=== PATIENT | male | born 1965 | race Two or more races ===

== ENCOUNTER 2020-03-20 21:52 | Inpatient (IN) | payer OTHER ==
[~2020-03-20] VITALS: Ht 170.2 cm; Wt 81.7 kg
[2020-03-20 23:45] LABS: Basophils # (auto) 0.1 10 ^3/uL (0-0.2); Eosinophils # (auto) 0 10 ^3/uL (0-0.8); Eosinophils % (auto) 0.1 % (0.0-7.0); Hemoglobin 17.4 g/dL (13.5-17.5); Red Cell Distribution Width 14.9 % (11.8-14.3)
[2020-03-20 23:47] LABS: Basophils % (auto) 0.4 % (0.0-2.0); Hematocrit 53.6 % (41.0-53.0); Lymphocytes # (auto) 0.8 10 ^3/uL (0.4-5.4); Lymphocytes % (auto) 3.8 % (10.0-50.0); Mean Corpuscular Hemoglobin 29.3 pg (28.0-32.0); Mean Corpuscular Hgb Conc. 32.4 g/dL (32.0-36.0); Mean Corpuscular Volume 90.3 fL (80.0-100.0); Monocytes % (auto) 5.1 % (0.0-12.0); Neutrophils # (auto) 18.5 10 ^3/uL (1.6-8.6); Neutrophils % (auto) 90.6 % (37.0-80.0); Nucleated Red Blood Cells % 0.1 %; Platelet Count (auto) 419 10^3/uL (140-450); Red Blood Cells 5.94 10^6/uL (4.5-5.90); White Blood Cell 20.4 10^3/uL (4.4-10.8)
[2020-03-21] VITALS (73 sets, daily range): BP systolic 98–140; BP diastolic 65–101
[2020-03-21 00:05] LABS: Albumin 2.8 g/dL (3.4-5.0); Anion Gap 14 (5-15); Calcium 9.5 mg/dL (8.5-10.1); Carbon Dioxide 19 mmol/L (21-32); Chloride 116 mmol/L (98-107); INR 1.12 (0.9-1.15); Sodium 149 mmol/L (136-145)
[2020-03-21 00:12] LABS: Lactic Acid w/Reflex 3.4 mmol/L (0.4-2.0)
[2020-03-21 00:13] LABS: Alanine Aminotransferase 56 U/L (16-61); Alkaline Phosphatase 126 U/L (45-117); Aspartate Aminotransferase 54 U/L (15-37); BUN/Creatinine Ratio 51.8; Bilirubin, Total 0.9 mg/dL (0.2-1.0); GFR African American 47 mL/min; GFR Non-African American 39 mL/min; Total Protein 9.8 g/dL (6.4-8.2)
[2020-03-21 00:18] LABS: Blood Urea Nitrogen 100 mg/dL (7-18); Glucose 807 mg/dL (74-106); Potassium 5.4 mmol/L (3.5-5.1)
[2020-03-21] MEDS ORDERED: InsuLIN REG 1unit/0.01ml Soln (100units/ml) IV ONE (00:30)
[2020-03-21] MEDS ORDERED: SODIUM CHLORIDE 0.9% 1,000 ML IV ONE (00:45)
[2020-03-21] MEDS ORDERED: levoFLOXacin 750MG 150 ML IV ONE (01:30)
[2020-03-21] MEDS ORDERED: InsuLIN R (HUMAN) 100 UNITS in SODIUM CHL 0.9% 99 ML IV SCH ×4 (02:04→05:39)
[2020-03-21] MEDS ORDERED: DOCUSATE SOD 100 MG CAP PO PRN (02:15)
[2020-03-21] MEDS ORDERED: MORPHINE SULF INJ 2 MG/ML SYRINGE 1ML IV PRN (02:15)
[2020-03-21] MEDS ORDERED: MAGNESIUM SULFATE 1GM/100ML 200 ML IV ONE (02:15)
[2020-03-21] MEDS ORDERED: ONDANSETRON HCL 4 MG/2 ML VIAL IV PRN (02:15)
[2020-03-21] MEDS ORDERED: INSULIN LANTUS (GLARGINE) 1 /0.01ml (100units/ml) SC ONE ×2 (02:15→12:00)
[2020-03-21] MEDS ORDERED: DEXTROSE (50%) 50ML SYRG IV PRN ×3 (02:15→20:15)
[2020-03-21] MEDS ORDERED: TEMAZEPAM 15 MG CAP PO PRN (02:15)
[2020-03-21] MEDS ORDERED: POTASSIUM CHL 20MEQ/100ML 200 ML IV PRN (02:15)
[2020-03-21] MEDS: ACCU-CHEK COMFORT CURVE STRIP VI SCH ×10 (03:00→23:40)
[2020-03-21] MEDS ORDERED: InsuLIN REG 1unit/0.01ml Soln (100units/ml) ONE ×2 (03:35→03:48)
[2020-03-21] MEDS: SODIUM CHLORIDE 0.9% 1,000 ML IV SCH ×2 (04:04→05:28)
[2020-03-21] MEDS ORDERED: SODIUM CHLORIDE 0.9% 1,000 ML IV SCH ×2 (06:04→08:04)
[2020-03-21 06:39] LABS: Urine Bacteria NONE SEEN /hpf (None Seen); Urine Blood 1+ /uL (Negative); Urine Hyaline Cast MOD /lpf (0 - 2); Urine Mucus FEW (None Seen); Urine WBC 2 /hpf (0 - 3)
[2020-03-21] MEDS: InsuLIN REG 1unit/0.01ml Soln (100units/ml) SC SCH ×4 (07:00→23:00)
[2020-03-21 07:29] LABS: Calcium 8.6 mg/dL (8.5-10.1)
[2020-03-21 07:30] LABS: Basophils # (auto) 0 10 ^3/uL (0-0.2); Basophils % (auto) 0.2 % (0.0-2.0); Eosinophils # (auto) 0 10 ^3/uL (0-0.8); Hemoglobin 16.4 g/dL (13.5-17.5); Lymphocytes # (auto) 0.7 10 ^3/uL (0.4-5.4); Lymphocytes % (auto) 3.7 % (10.0-50.0); Mean Corpuscular Hgb Conc. 32.9 g/dL (32.0-36.0); Mean Corpuscular Volume 88.1 fL (80.0-100.0); Monocytes # (auto) 0.6 10 ^3/uL (0-1.3); Monocytes % (auto) 3.2 % (0.0-12.0); Neutrophils # (auto) 17.9 10 ^3/uL (1.6-8.6); Neutrophils % (auto) 92.9 % (37.0-80.0); Nucleated Red Blood Cells % 0.1 %; Platelet Count (auto) 390 10^3/uL (140-450); Red Blood Cells 5.68 10^6/uL (4.5-5.90); Red Cell Distribution Width 14.6 % (11.8-14.3); White Blood Cell 19.3 10^3/uL (4.4-10.8)
[2020-03-21 07:37] LABS: BUN/Creatinine Ratio 56.4; Phosphorus 3.9 mg/dL (2.5-4.90)
[2020-03-21 07:41] LABS: Magnesium 4.5 mg/dL (1.6-2.6)
[2020-03-21] MEDS: ALBUTEROL SULF HFA 90MCG INH 200DOSE IN SCH ×3 (08:27→22:32)
[2020-03-21] MEDS: ASCORBIC ACID 1,000 MG TAB PO SCH (10:09)
[2020-03-21] MEDS: ZINC SULFATE 220mg CAP or TAB PO SCH (10:09)
[2020-03-21] MEDS: DOXYCYCLINE 100 MG TAB/CAP PO SCH ×2 (10:09→22:21)
[2020-03-21] MEDS: CHOLECALCIFEROL (VITD3) 1,000IU=25mCg TAB PO SCH (10:10)
[2020-03-21] MEDS: ENOXAPARIN SOD 40 MG/0.4 ML SYRINGE SC SCH (10:10)
[2020-03-21] MEDS ORDERED: FUROSEMIDE 40 MG/4 ML VIAL IV ONE (12:00)
[2020-03-21 14:07] LABS: BUN/Creatinine Ratio 61.9; Calcium 9.1 mg/dL (8.5-10.1); Potassium 4.1 mmol/L (3.5-5.1)
[2020-03-21] MEDS ORDERED: cefTRIAXone 1GM/50ML D5W 50 ML IV ONE (15:15)
[2020-03-21] MEDS: FREE WATER GT SCH ×3 (17:29→22:21)
[2020-03-22] VITALS (92 sets, daily range): BP systolic 104–137; BP diastolic 67–99
[2020-03-22] MEDS: FREE WATER GT SCH ×2 (02:19→05:56)
[2020-03-22] MEDS: InsuLIN REG 1unit/0.01ml Soln (100units/ml) SC SCH ×4 (04:21→18:15)
[2020-03-22] MEDS: ACCU-CHEK COMFORT CURVE STRIP VI SCH ×3 (04:21→18:30)
[2020-03-22 04:54] LABS: Basophils # (auto) 0.1 10 ^3/uL (0-0.2); Basophils % (auto) 0.3 % (0.0-2.0); Eosinophils # (auto) 0.1 10 ^3/uL (0-0.8); Eosinophils % (auto) 0.7 % (0.0-7.0); Hematocrit 48.8 % (41.0-53.0); Lymphocytes # (auto) 1.2 10 ^3/uL (0.4-5.4); Lymphocytes % (auto) 6.1 % (10.0-50.0); Mean Corpuscular Hemoglobin 28.9 pg (28.0-32.0); Mean Corpuscular Hgb Conc. 32.8 g/dL (32.0-36.0); Monocytes # (auto) 0.9 10 ^3/uL (0-1.3); Monocytes % (auto) 4.5 % (0.0-12.0); Neutrophils # (auto) 17.4 10 ^3/uL (1.6-8.6); Neutrophils % (auto) 88.4 % (37.0-80.0); Nucleated Red Blood Cells % 0.1 %; Platelet Count (auto) 329 10^3/uL (140-450); Red Blood Cells 5.54 10^6/uL (4.5-5.90); Red Cell Distribution Width 14.6 % (11.8-14.3); White Blood Cell 19.7 10^3/uL (4.4-10.8)
[2020-03-22 05:15] LABS: Potassium 4.2 mmol/L (3.5-5.1)
[2020-03-22 05:30] LABS: Albumin 2.5 g/dL (3.4-5.0); BUN/Creatinine Ratio 51.1; Bilirubin, Total 0.7 mg/dL (0.2-1.0); Total Protein 8.5 g/dL (6.4-8.2)
[2020-03-22] MEDS: ALBUTEROL SULF HFA 90MCG INH 200DOSE IN SCH ×3 (06:48→22:58)
[2020-03-22] MEDS ORDERED: INSULIN LANTUS (GLARGINE) 1 /0.01ml (100units/ml) SC SCH ×2 (10:00→22:00)
[2020-03-22] MEDS: cefTRIAXone 1GM/50ML D5W 50 ML IV SCH (10:00)
[2020-03-22] MEDS: DOXYCYCLINE 100 MG TAB/CAP PO SCH ×2 (10:30→22:36)
[2020-03-22] MEDS: CHOLECALCIFEROL (VITD3) 1,000IU=25mCg TAB PO SCH (10:30)
[2020-03-22] MEDS: ASCORBIC ACID 1,000 MG TAB PO SCH (10:30)
[2020-03-22] MEDS: ZINC SULFATE 220mg CAP or TAB PO SCH (10:30)
[2020-03-22] MEDS: FREE WATER PO SCH ×4 (10:30→22:00)
[2020-03-22] MEDS: ENOXAPARIN SOD 40 MG/0.4 ML SYRINGE SC SCH (10:30)
[2020-03-22] MEDS ORDERED: DEXTROSE (50%) 50ML SYRG IV PRN (12:15)
[2020-03-22] MEDS ORDERED: INSULIN LANTUS (GLARGINE) 1 /0.01ml (100units/ml) SC ONE (12:15)
[2020-03-22] MEDS: HYDROcodone-ACET 5/325MG TAB PO PRN (22:44)
[2020-03-22 22:52] LABS: Urine Bacteria NONE SEEN /hpf (None Seen); Urine Blood 1+ /uL (Negative); Urine Specific Gravity 1.028 (1.001-1.035); Urine WBC 1 /hpf (0 - 3)
[2020-03-22 23:04] LABS: Protein, Urine 45.4 mg/dL (0.0-11.9)
[2020-03-23] VITALS (37 sets, daily range): BP systolic 102–151; BP diastolic 64–89
[2020-03-23] MEDS: FREE WATER PO SCH ×2 (01:38→06:07)
[2020-03-23 04:59] LABS: Basophils # (auto) 0 10 ^3/uL (0-0.2); Basophils % (auto) 0.1 % (0.0-2.0); Eosinophils # (auto) 0.2 10 ^3/uL (0-0.8); Eosinophils % (auto) 1.7 % (0.0-7.0); Hematocrit 40.1 % (41.0-53.0); Hemoglobin 13.1 g/dL (13.5-17.5); Lymphocytes # (auto) 1.7 10 ^3/uL (0.4-5.4); Lymphocytes % (auto) 11.1 % (10.0-50.0); Mean Corpuscular Hemoglobin 28.7 pg (28.0-32.0); Mean Corpuscular Hgb Conc. 32.8 g/dL (32.0-36.0); Mean Corpuscular Volume 87.6 fL (80.0-100.0); Monocytes # (auto) 0.5 10 ^3/uL (0-1.3); Monocytes % (auto) 3.3 % (0.0-12.0); Neutrophils # (auto) 12.6 10 ^3/uL (1.6-8.6); Neutrophils % (auto) 83.8 % (37.0-80.0); Nucleated Red Blood Cells % 0.1 %; Platelet Count (auto) 238 10^3/uL (140-450); Red Blood Cells 4.58 10^6/uL (4.5-5.90); Red Cell Distribution Width 13.9 % (11.8-14.3); White Blood Cell 15.1 10^3/uL (4.4-10.8)
[2020-03-23 05:17] LABS: BUN/Creatinine Ratio 57.5; Potassium 3.6 mmol/L (3.5-5.1)
[2020-03-23] MEDS: ALBUTEROL SULF HFA 90MCG INH 200DOSE IN SCH ×3 (06:07→22:26)
[2020-03-23] MEDS: ACCU-CHEK COMFORT CURVE STRIP VI SCH ×5 (06:10→23:55)
[2020-03-23] MEDS: InsuLIN REG 1unit/0.01ml Soln (100units/ml) SC SCH ×5 (06:11→23:56)
[2020-03-23] MEDS: cefTRIAXone 1GM/50ML D5W 50 ML IV SCH (09:06)
[2020-03-23] MEDS: ZINC SULFATE 220mg CAP or TAB PO SCH (10:00)
[2020-03-23] MEDS: CHOLECALCIFEROL (VITD3) 1,000IU=25mCg TAB PO SCH (10:00)
[2020-03-23] MEDS: ASCORBIC ACID 1,000 MG TAB PO SCH (10:00)
[2020-03-23] MEDS: DOXYCYCLINE 100 MG TAB/CAP PO SCH ×2 (10:00→22:11)
[2020-03-23] MEDS: ENOXAPARIN SOD 40 MG/0.4 ML SYRINGE SC SCH (10:00)
[2020-03-23 10:48] LABS: Free T3 1.8 pg/mL (2.3-4.2); Free T4 (Free Thyroxine) 1.08 ng/dL (0.89-1.76)
[2020-03-23] MEDS ORDERED: NYSTATIN TOPICAL CREAM 15GM TOP ONE (12:30)
[2020-03-23] MEDS ORDERED: NYSTATIN (MOUTH-THROAT) 500,000 UNITS/5 ML SUSP MT ONE (12:30)
[2020-03-23] MEDS: NYSTATIN (MOUTH-THROAT) 500,000 UNITS/5 ML SUSP MT SCH ×2 (17:35→22:11)
[2020-03-23] MEDS: INSULIN LANTUS (GLARGINE) 1 /0.01ml (100units/ml) SC SCH (22:11)
[2020-03-23] MEDS: NYSTATIN TOPICAL CREAM 15GM TOP SCH (22:25)
[2020-03-23] MEDS: ACETAMINOPHEN 500 MG TAB PO PRN (22:28)
[2020-03-24 05:00] VITALS: BP 101/52
[2020-03-24] MEDS: InsuLIN REG 1unit/0.01ml Soln (100units/ml) SC SCH ×4 (06:00→23:25)
[2020-03-24] MEDS: ACCU-CHEK COMFORT CURVE STRIP VI SCH ×4 (06:04→21:53)
[2020-03-24] MEDS: NYSTATIN (MOUTH-THROAT) 500,000 UNITS/5 ML SUSP MT SCH ×4 (06:05→21:51)
[2020-03-24] MEDS: ALBUTEROL SULF HFA 90MCG INH 200DOSE IN SCH ×3 (06:39→22:26)
[2020-03-24 06:48] LABS: Basophils # (auto) 0.1 10 ^3/uL (0-0.2); Eosinophils # (auto) 0.1 10 ^3/uL (0-0.8); Eosinophils % (auto) 0.4 % (0.0-7.0); Hematocrit 39.3 % (41.0-53.0); Hemoglobin 13.4 g/dL (13.5-17.5); Lymphocytes # (auto) 1.4 10 ^3/uL (0.4-5.4); Lymphocytes % (auto) 10.1 % (10.0-50.0); Mean Corpuscular Volume 85.5 fL (80.0-100.0); Monocytes # (auto) 0.5 10 ^3/uL (0-1.3); Monocytes % (auto) 3.4 % (0.0-12.0); Neutrophils # (auto) 11.9 10 ^3/uL (1.6-8.6); Neutrophils % (auto) 85.1 % (37.0-80.0); Nucleated Red Blood Cells % 0.1 %; Platelet Count (auto) 220 10^3/uL (140-450); Red Cell Distribution Width 13.7 % (11.8-14.3)
[2020-03-24 07:08] LABS: Calcium 8.5 mg/dL (8.5-10.1); Potassium 3.4 mmol/L (3.5-5.1)
[2020-03-24 07:13] LABS: BUN/Creatinine Ratio 41.5
[2020-03-24 08:33] LABS: Cholesterol 75 mg/dL (< 200); HDL Cholesterol 21 mg/dL (40-59); LDL Cholesterol 47 mg/dL (< 100); Triglycerides 137 mg/dL (< 150)
[2020-03-24 09:00] VITALS: BP 118/68
[2020-03-24] MEDS: cefTRIAXone 1GM/50ML D5W 50 ML IV SCH (10:11)
[2020-03-24] MEDS: ASPirin 81 mg TAB PO SCH (10:11)
[2020-03-24] MEDS: ZINC SULFATE 220mg CAP or TAB PO SCH (10:11)
[2020-03-24] MEDS: ASCORBIC ACID 1,000 MG TAB PO SCH (10:11)
[2020-03-24] MEDS: DOXYCYCLINE 100 MG TAB/CAP PO SCH ×2 (10:11→21:52)
[2020-03-24] MEDS: CHOLECALCIFEROL (VITD3) 1,000IU=25mCg TAB PO SCH (10:12)
[2020-03-24] MEDS: INSULIN LANTUS (GLARGINE) 1 /0.01ml (100units/ml) SC SCH ×2 (10:12→21:55)
[2020-03-24] MEDS: NYSTATIN TOPICAL CREAM 15GM TOP SCH ×2 (10:13→21:52)
[2020-03-24] MEDS: ENOXAPARIN SOD 40 MG/0.4 ML SYRINGE SC SCH (10:13)
[2020-03-24 10:40] LABS: Magnesium 2.8 mg/dL (1.6-2.6)
[2020-03-24 10:59] VITALS: BP 118/68
[2020-03-24] MEDS ORDERED: POTASSIUM CHL 20 Meq TABLET PO ONE (11:30)
[2020-03-24 13:00] VITALS: BP 131/78
[2020-03-24 17:00] VITALS: BP 115/75
[2020-03-24] MEDS: ACETAMINOPHEN 500 MG TAB PO PRN (19:14)
[2020-03-24] MEDS: ATORVASTATIN 20 MG TAB PO SCH (21:52)
[2020-03-24 23:23] VITALS: BP 109/65
[2020-03-25] MEDS: NYSTATIN (MOUTH-THROAT) 500,000 UNITS/5 ML SUSP MT SCH ×4 (05:36→21:31)
[2020-03-25] MEDS: ALBUTEROL SULF HFA 90MCG INH 200DOSE IN SCH ×3 (05:50→21:56)
[2020-03-25] MEDS: ACCU-CHEK COMFORT CURVE STRIP VI SCH ×4 (05:50→21:56)
[2020-03-25] MEDS: InsuLIN REG 1unit/0.01ml Soln (100units/ml) SC SCH ×3 (05:50→17:00)
[2020-03-25] MEDS: INSULIN LANTUS (GLARGINE) 1 /0.01ml (100units/ml) SC SCH ×2 (05:51→21:48)
[2020-03-25 05:56] VITALS: BP 124/66
[2020-03-25] MEDS: ACETAMINOPHEN 500 MG TAB PO PRN ×3 (07:06→23:34)
[2020-03-25 07:51] LABS: Basophils # (auto) 0.1 10 ^3/uL (0-0.2); Basophils % (auto) 0.4 % (0.0-2.0); Eosinophils # (auto) 0.1 10 ^3/uL (0-0.8); Eosinophils % (auto) 0.4 % (0.0-7.0); Hematocrit 38.7 % (41.0-53.0); Hemoglobin 12.9 g/dL (13.5-17.5); Mean Corpuscular Hemoglobin 28.8 pg (28.0-32.0); Mean Corpuscular Hgb Conc. 33.2 g/dL (32.0-36.0); Mean Corpuscular Volume 86.9 fL (80.0-100.0); Monocytes # (auto) 0.5 10 ^3/uL (0-1.3); Monocytes % (auto) 3.6 % (0.0-12.0); Neutrophils # (auto) 12.7 10 ^3/uL (1.6-8.6); Neutrophils % (auto) 88.6 % (37.0-80.0); Nucleated Red Blood Cells % 0.1 %; Platelet Count (auto) 198 10^3/uL (140-450); Red Blood Cells 4.46 10^6/uL (4.5-5.90); Red Cell Distribution Width 13.8 % (11.8-14.3); White Blood Cell 14.3 10^3/uL (4.4-10.8)
[2020-03-25 08:03] LABS: Albumin 2.1 g/dL (3.4-5.0); Calcium 8.4 mg/dL (8.5-10.1); Potassium 3.9 mmol/L (3.5-5.1)
[2020-03-25 08:11] LABS: BUN/Creatinine Ratio 32.4; Bilirubin, Total 0.8 mg/dL (0.2-1.0); CRP High Sensitivity 7.34 mg/dL (< 0.3); Total Protein 7.4 g/dL (6.4-8.2)
[2020-03-25] MEDS: ASCORBIC ACID 1,000 MG TAB PO SCH (10:00)
[2020-03-25] MEDS: NYSTATIN TOPICAL CREAM 15GM TOP SCH ×2 (10:00→21:48)
[2020-03-25] MEDS: cefTRIAXone 1GM/50ML D5W 50 ML IV SCH (10:15)
[2020-03-25] MEDS: ASPirin 81 mg TAB PO SCH (10:15)
[2020-03-25] MEDS: CHOLECALCIFEROL (VITD3) 1,000IU=25mCg TAB PO SCH (10:15)
[2020-03-25] MEDS: ZINC SULFATE 220mg CAP or TAB PO SCH (10:16)
[2020-03-25] MEDS: DOXYCYCLINE 100 MG TAB/CAP PO SCH ×2 (10:16→21:31)
[2020-03-25] MEDS: ENOXAPARIN SOD 40 MG/0.4 ML SYRINGE SC SCH (10:16)
[2020-03-25 11:00] VITALS: BP 106/69
[2020-03-25 13:00] VITALS: BP 123/75
[2020-03-25] MEDS ORDERED: DEXTROSE (50%) 50ML SYRG IV PRN (15:15)
[2020-03-25] MEDS: FUROSEMIDE 40 MG/4 ML VIAL IV SCH (18:00)
[2020-03-25] MEDS: ATORVASTATIN 20 MG TAB PO SCH (21:31)
[2020-03-25] MEDS: POTASSIUM CHL 20 Meq TABLET PO SCH (21:31)
[2020-03-25 22:00] VITALS: BP 117/56
[2020-03-26 05:00] VITALS: BP 100/60
[2020-03-26] MEDS: NYSTATIN (MOUTH-THROAT) 500,000 UNITS/5 ML SUSP MT SCH ×4 (06:10→21:38)
[2020-03-26] MEDS: FUROSEMIDE 40 MG/4 ML VIAL IV SCH ×2 (06:10→17:24)
[2020-03-26] MEDS: INSULIN LANTUS (GLARGINE) 1 /0.01ml (100units/ml) SC SCH ×2 (06:20→22:34)
[2020-03-26] MEDS: ACCU-CHEK COMFORT CURVE STRIP VI SCH ×4 (06:20→22:33)
[2020-03-26] MEDS: InsuLIN REG 1unit/0.01ml Soln (100units/ml) SC SCH ×3 (06:21→17:00)
[2020-03-26] MEDS: ALBUTEROL SULF HFA 90MCG INH 200DOSE IN SCH ×3 (06:27→22:25)
[2020-03-26 07:19] LABS: Basophils # (auto) 0.1 10 ^3/uL (0-0.2); Basophils % (auto) 0.5 % (0.0-2.0); Eosinophils # (auto) 0.1 10 ^3/uL (0-0.8); Eosinophils % (auto) 0.5 % (0.0-7.0); Hematocrit 39.6 % (41.0-53.0); Hemoglobin 13.3 g/dL (13.5-17.5); Lymphocytes # (auto) 1.2 10 ^3/uL (0.4-5.4); Mean Corpuscular Hemoglobin 29.3 pg (28.0-32.0); Mean Corpuscular Hgb Conc. 33.4 g/dL (32.0-36.0); Mean Corpuscular Volume 87.7 fL (80.0-100.0); Monocytes # (auto) 0.6 10 ^3/uL (0-1.3); Monocytes % (auto) 3.6 % (0.0-12.0); Neutrophils # (auto) 13.6 10 ^3/uL (1.6-8.6); Neutrophils % (auto) 87.4 % (37.0-80.0); Nucleated Red Blood Cells % 0.2 %; Platelet Count (auto) 222 10^3/uL (140-450); Red Blood Cells 4.52 10^6/uL (4.5-5.90); Red Cell Distribution Width 13.8 % (11.8-14.3); White Blood Cell 15.6 10^3/uL (4.4-10.8)
[2020-03-26 07:34] LABS: Potassium 3.9 mmol/L (3.5-5.1)
[2020-03-26 07:41] LABS: BUN/Creatinine Ratio 34.2; Calcium 8.5 mg/dL (8.5-10.1)
[2020-03-26 09:00] VITALS: BP 135/87
[2020-03-26] MEDS: POTASSIUM CHL 20 Meq TABLET PO SCH ×2 (10:23→21:39)
[2020-03-26] MEDS: ASCORBIC ACID 1,000 MG TAB PO SCH (10:23)
[2020-03-26] MEDS: ASPirin 81 mg TAB PO SCH (10:23)
[2020-03-26] MEDS: cefTRIAXone 1GM/50ML D5W 50 ML IV SCH (10:23)
[2020-03-26] MEDS: ZINC SULFATE 220mg CAP or TAB PO SCH (10:24)
[2020-03-26] MEDS: NYSTATIN TOPICAL CREAM 15GM TOP SCH ×2 (10:25→22:22)
[2020-03-26] MEDS ORDERED: ENOXAPARIN SOD 40 MG/0.4 ML SYRINGE SC ONE (10:45)
[2020-03-26] MEDS: CHOLECALCIFEROL (VITD3) 1,000IU=25mCg TAB PO SCH (12:26)
[2020-03-26 13:00] VITALS: BP 118/75
[2020-03-26] MEDS ORDERED: ACETAMINOPHEN 650 mg PER 20 mL UD PO ONE (14:30)
[2020-03-26] MEDS ORDERED: methylPREDNISolone SOD SUCC 40 MG/ML VL IV ONE (14:30)
[2020-03-26] MEDS ORDERED: diphenhdrAMINE HCL 50 MG/1 ML VL IV ONE (14:30)
[2020-03-26] MEDS ORDERED: TOCILIZUMAB 400 MG in SODIUM CHL 0.9% 80 ML IV ONE (15:00)
[2020-03-26 17:00] VITALS: BP 113/76
[2020-03-26] MEDS: ATORVASTATIN 20 MG TAB PO SCH (21:39)
[2020-03-26] MEDS: ENOXAPARIN SOD 80 MG/0.8ML SYRINGE SC SCH (21:39)
[2020-03-26 22:19] VITALS: BP 92/54
[2020-03-27] VITALS (8 sets, daily range): BP systolic 101–129; BP diastolic 71–87
[2020-03-27] MEDS: FUROSEMIDE 40 MG/4 ML VIAL IV SCH ×2 (05:37→17:41)
[2020-03-27] MEDS: NYSTATIN (MOUTH-THROAT) 500,000 UNITS/5 ML SUSP MT SCH ×4 (05:37→21:13)
[2020-03-27] MEDS: ACCU-CHEK COMFORT CURVE STRIP VI SCH ×4 (05:46→21:25)
[2020-03-27] MEDS: InsuLIN REG 1unit/0.01ml Soln (100units/ml) SC SCH ×3 (06:41→17:00)
[2020-03-27] MEDS: INSULIN LANTUS (GLARGINE) 1 /0.01ml (100units/ml) SC SCH ×2 (06:42→21:39)
[2020-03-27] MEDS: ALBUTEROL SULF HFA 90MCG INH 200DOSE IN SCH ×3 (07:35→22:00)
[2020-03-27] MEDS: cefTRIAXone 1GM/50ML D5W 50 ML IV SCH (09:27)
[2020-03-27] MEDS ORDERED: diphenhdrAMINE HCL 50 MG/1 ML VL IV ONE (10:30)
[2020-03-27] MEDS ORDERED: ACETAMINOPHEN 650 mg PER 20 mL UD PO ONE (10:30)
[2020-03-27] MEDS ORDERED: methylPREDNISolone SOD SUCC 40 MG/ML VL IV ONE (10:30)
[2020-03-27] MEDS: ASPirin 81 mg TAB PO SCH (10:47)
[2020-03-27] MEDS: ZINC SULFATE 220mg CAP or TAB PO SCH (10:47)
[2020-03-27] MEDS: CHOLECALCIFEROL (VITD3) 1,000IU=25mCg TAB PO SCH ×2 (10:48→17:16)
[2020-03-27] MEDS: ENOXAPARIN SOD 80 MG/0.8ML SYRINGE SC SCH ×2 (10:48→21:13)
[2020-03-27] MEDS: POTASSIUM CHL 20 Meq TABLET PO SCH ×2 (10:48→21:13)
[2020-03-27] MEDS: ASCORBIC ACID 1,000 MG TAB PO SCH (10:48)
[2020-03-27] MEDS: NYSTATIN TOPICAL CREAM 15GM TOP SCH ×2 (10:48→21:25)
[2020-03-27] MEDS ORDERED: TOCILIZUMAB 400 MG in SODIUM CHL 0.9% 80 ML IV ONE (11:00)
[2020-03-27] MEDS: ATORVASTATIN 20 MG TAB PO SCH (21:13)
[2020-03-27] MEDS: ACETAMINOPHEN 500 MG TAB PO PRN (23:59)
[2020-03-28] MEDS: HYDROcodone-ACET 5/325MG TAB PO PRN ×2 (04:09→12:06)
[2020-03-28 05:00] VITALS: BP 111/70
[2020-03-28] MEDS: FUROSEMIDE 40 MG/4 ML VIAL IV SCH ×2 (06:36→17:40)
[2020-03-28] MEDS: NYSTATIN (MOUTH-THROAT) 500,000 UNITS/5 ML SUSP MT SCH ×4 (06:36→21:38)
[2020-03-28] MEDS: ACCU-CHEK COMFORT CURVE STRIP VI SCH ×4 (06:36→21:40)
[2020-03-28] MEDS: INSULIN LANTUS (GLARGINE) 1 /0.01ml (100units/ml) SC SCH ×2 (06:37→21:40)
[2020-03-28] MEDS: InsuLIN REG 1unit/0.01ml Soln (100units/ml) SC SCH ×3 (06:37→17:29)
[2020-03-28] MEDS: ALBUTEROL SULF HFA 90MCG INH 200DOSE IN SCH ×3 (08:00→22:11)
[2020-03-28 09:00] VITALS: BP 127/84
[2020-03-28] MEDS: cefTRIAXone 1GM/50ML D5W 50 ML IV SCH (09:56)
[2020-03-28] MEDS: ASPirin 81 mg TAB PO SCH (09:57)
[2020-03-28] MEDS: ASCORBIC ACID 1,000 MG TAB PO SCH (09:57)
[2020-03-28] MEDS: POTASSIUM CHL 20 Meq TABLET PO SCH ×2 (09:57→21:38)
[2020-03-28] MEDS: ZINC SULFATE 220mg CAP or TAB PO SCH (09:57)
[2020-03-28] MEDS: ENOXAPARIN SOD 80 MG/0.8ML SYRINGE SC SCH ×2 (09:58→21:38)
[2020-03-28] MEDS: CHOLECALCIFEROL (VITD3) 1,000IU=25mCg TAB PO SCH (09:58)
[2020-03-28] MEDS: NYSTATIN TOPICAL CREAM 15GM TOP SCH ×2 (09:58→21:39)
[2020-03-28] MEDS: LORazepam 0.5 MG TAB PO PRN ×2 (12:18→21:38)
[2020-03-28 13:00] VITALS: BP 123/87
[2020-03-28 17:28] VITALS: BP 140/69
[2020-03-28] MEDS: ATORVASTATIN 20 MG TAB PO SCH (21:38)
[2020-03-28 22:00] VITALS: BP 120/83
[2020-03-29 05:28] VITALS: BP 113/79
[2020-03-29 05:34] LABS: Basophils # (auto) 0.1 10 ^3/uL (0-0.2); Eosinophils # (auto) 0.1 10 ^3/uL (0-0.8); Eosinophils % (auto) 1.5 % (0.0-7.0); Hematocrit 40.9 % (41.0-53.0); Hemoglobin 13.7 g/dL (13.5-17.5); Lymphocytes # (auto) 2.2 10 ^3/uL (0.4-5.4); Lymphocytes % (auto) 26.3 % (10.0-50.0); Mean Corpuscular Hemoglobin 28.9 pg (28.0-32.0); Mean Corpuscular Hgb Conc. 33.5 g/dL (32.0-36.0); Mean Corpuscular Volume 86.3 fL (80.0-100.0); Monocytes # (auto) 0.6 10 ^3/uL (0-1.3); Monocytes % (auto) 6.9 % (0.0-12.0); Neutrophils # (auto) 5.4 10 ^3/uL (1.6-8.6); Neutrophils % (auto) 64.3 % (37.0-80.0); Nucleated Red Blood Cells % 0.1 %; Platelet Count (auto) 420 10^3/uL (140-450); Red Blood Cells 4.74 10^6/uL (4.5-5.90); Red Cell Distribution Width 13.7 % (11.8-14.3); White Blood Cell 8.4 10^3/uL (4.4-10.8)
[2020-03-29] MEDS: FUROSEMIDE 40 MG/4 ML VIAL IV SCH ×2 (05:50→17:32)
[2020-03-29 05:51] LABS: Calcium 8.7 mg/dL (8.5-10.1); Potassium 3.5 mmol/L (3.5-5.1)
[2020-03-29] MEDS: NYSTATIN (MOUTH-THROAT) 500,000 UNITS/5 ML SUSP MT SCH ×4 (05:51→21:16)
[2020-03-29 05:53] LABS: BUN/Creatinine Ratio 53.1
[2020-03-29] MEDS: ACCU-CHEK COMFORT CURVE STRIP VI SCH ×4 (05:59→21:16)
[2020-03-29] MEDS: InsuLIN REG 1unit/0.01ml Soln (100units/ml) SC SCH ×3 (05:59→17:34)
[2020-03-29] MEDS: INSULIN LANTUS (GLARGINE) 1 /0.01ml (100units/ml) SC SCH ×2 (06:35→21:15)
[2020-03-29] MEDS: ALBUTEROL SULF HFA 90MCG INH 200DOSE IN SCH ×4 (07:24→22:15)
[2020-03-29] MEDS: ASPirin 81 mg TAB PO SCH (08:51)
[2020-03-29] MEDS: cefTRIAXone 1GM/50ML D5W 50 ML IV SCH (08:51)
[2020-03-29] MEDS: ZINC SULFATE 220mg CAP or TAB PO SCH (08:52)
[2020-03-29] MEDS: POTASSIUM CHL 20 Meq TABLET PO SCH ×2 (08:53→21:02)
[2020-03-29] MEDS: ASCORBIC ACID 1,000 MG TAB PO SCH (08:54)
[2020-03-29] MEDS: CHOLECALCIFEROL (VITD3) 1,000IU=25mCg TAB PO SCH (08:54)
[2020-03-29] MEDS: ENOXAPARIN SOD 80 MG/0.8ML SYRINGE SC SCH ×2 (08:55→21:03)
[2020-03-29] MEDS: NYSTATIN TOPICAL CREAM 15GM TOP SCH ×2 (08:56→21:16)
[2020-03-29 09:00] VITALS: BP 113/82
[2020-03-29 13:00] VITALS: BP 92/64
[2020-03-29 17:16] VITALS: BP 106/79
[2020-03-29] MEDS: ATORVASTATIN 20 MG TAB PO SCH (21:03)
[2020-03-29 22:00] VITALS: BP 113/74
[2020-03-30 05:09] VITALS: BP 103/67
[2020-03-30] MEDS: ALBUTEROL SULF HFA 90MCG INH 200DOSE IN SCH ×2 (06:00→14:30)
[2020-03-30] MEDS: NYSTATIN (MOUTH-THROAT) 500,000 UNITS/5 ML SUSP MT SCH ×2 (06:00→08:55)
[2020-03-30] MEDS: FUROSEMIDE 40 MG/4 ML VIAL IV SCH (06:00)
[2020-03-30] MEDS: ACCU-CHEK COMFORT CURVE STRIP VI SCH (06:21)
[2020-03-30] MEDS: INSULIN LANTUS (GLARGINE) 1 /0.01ml (100units/ml) SC SCH (06:22)
[2020-03-30] MEDS: InsuLIN REG 1unit/0.01ml Soln (100units/ml) SC SCH (06:22)
[2020-03-30] MEDS: cefTRIAXone 1GM/50ML D5W 50 ML IV SCH (08:52)
[2020-03-30] MEDS: ASPirin 81 mg TAB PO SCH (08:52)
[2020-03-30] MEDS: POTASSIUM CHL 20 Meq TABLET PO SCH (08:53)
[2020-03-30] MEDS: ZINC SULFATE 220mg CAP or TAB PO SCH (08:53)
[2020-03-30] MEDS: ASCORBIC ACID 1,000 MG TAB PO SCH (08:53)
[2020-03-30] MEDS: CHOLECALCIFEROL (VITD3) 1,000IU=25mCg TAB PO SCH (08:54)
[2020-03-30] MEDS: NYSTATIN TOPICAL CREAM 15GM TOP SCH (08:54)
[2020-03-30] MEDS: ENOXAPARIN SOD 80 MG/0.8ML SYRINGE SC SCH (08:54)
[2020-03-30] MEDS: LORazepam 0.5 MG TAB PO PRN (08:56)
[2020-03-30] MEDS: HYDROcodone-ACET 5/325MG TAB PO PRN (08:56)
[2020-03-30] MEDS ORDERED: ATOR10TA52 PO (09:31)
[2020-03-30] MEDS ORDERED: ASCO10003 PO (09:31)
[2020-03-30] MEDS ORDERED: ASPI81CH43 PO (09:31)
[2020-03-30] MEDS ORDERED: CHOL20007 PO (09:32)
[2020-03-30] MEDS ORDERED: ALBUAER3 IN (09:32)
[2020-03-30] MEDS ORDERED: METF-370 PO (09:37)
[2020-03-30 12:29] VITALS: BP 103/67
== END 2020-03-30 17:20 | disposition home or self-care (01) | DRG 871 ==
LOC: EDBD 21:52 → ER 21:52 → TELE 21:53 → ICU WEST 03-21 04:00 → TELE-EAST 03-23 11:48
PROVIDERS: ADMIT Hospitalist; ATTEND Internal Medicine
PROC: 30233K1 Transfusion of Nonautologous Frozen Plasma into Peripheral Vein, Percutaneous Approach (ICD-10-PCS; principal; 2020-03-27)
DX: A41.89 Other specified sepsis (principal); U07.1 COVID-19; E11.00 Type 2 diabetes mellitus with hyperosmolarity without nonketotic hyperglycemic-hyperosmolar coma (NKHHC); J12.89 Other viral pneumonia; N17.0 Acute kidney failure with tubular necrosis; G93.41 Metabolic encephalopathy; J96.01 Acute respiratory failure with hypoxia; E43 Unspecified severe protein-calorie malnutrition; E87.0 Hyperosmolality and hypernatremia; E11.65 Type 2 diabetes mellitus with hyperglycemia; E86.0 Dehydration; E78.5 Hyperlipidemia, unspecified; Z79.4 Long term (current) use of insulin; Z83.3 Family history of diabetes mellitus; Z86.19 Personal history of other infectious and parasitic diseases
CPT/HCPCS: 36415; 36600; 71045; 80048; 80053; 80061; 81001; 82010; 82570; 82728; 82805; 82962; 83036; 83605; 83615; 83735; 83880; 83930; 84100; 84156; 84300; 84439; 84443; 84481; 84484; 85025; 85610; 85730; 86141; 86850; 86900; 86901; 87040; 87081; 93005; 94640; 96365; 96375; 97116; 97163; 97530; G0378; J0696; J1815; J1956

== ENCOUNTER → 2020-05-18 | Outpatient (CLI) | payer OTHER ==
[~2020-05-18] MED LIST: ALBUAER3 IN; ASCO10003 PO; ASPI81CH43 PO; ATOR10TA52 PO; CHOL20007 PO; METF-370 PO
[2020-05-18 15:20] LABS: Basophils # (auto) 0.1 10 ^3/uL (0-0.2); Basophils % (auto) 0.8 % (0.0-2.0); Eosinophils # (auto) 1.1 10 ^3/uL (0-0.8); Eosinophils % (auto) 10.4 % (0.0-7.0); Hematocrit 39.9 % (41.0-53.0); Hemoglobin 13.4 g/dL (13.5-17.5); Lymphocytes # (auto) 2.8 10 ^3/uL (0.4-5.4); Lymphocytes % (auto) 27.1 % (10.0-50.0); Mean Corpuscular Hemoglobin 29.3 pg (28.0-32.0); Mean Corpuscular Hgb Conc. 33.6 g/dL (32.0-36.0); Monocytes % (auto) 9.7 % (0.0-12.0); Neutrophils # (auto) 5.4 10 ^3/uL (1.6-8.6); Platelet Count (auto) 366 10^3/uL (140-450); Red Blood Cells 4.58 10^6/uL (4.5-5.90); White Blood Cell 10.4 10^3/uL (4.4-10.8)
[2020-05-18 15:37] LABS: Albumin 3.8 g/dL (3.4-5.0); BUN/Creatinine Ratio 31.4; Calcium 9.4 mg/dL (8.5-10.1); Potassium 3.7 mmol/L (3.5-5.1)
[2020-05-18 15:40] LABS: Bilirubin, Total 0.4 mg/dL (0.2-1.0); Total Protein 8.2 g/dL (6.4-8.2)
[2020-05-18 15:45] LABS: Free T4 (Free Thyroxine) 1.1 ng/dL (0.89-1.76)
== END | disposition home or self-care (01) ==
LOC: LAB 15:00
PROVIDERS: ATTEND Internal Medicine
DX: E11.9 Type 2 diabetes mellitus without complications (principal); U07.1 COVID-19; R53.81 Other malaise
CPT/HCPCS: 36415; 80053; 82550; 82607; 84439; 84443; 85025

== ENCOUNTER → 2020-07-16 | Outpatient (CLI) | payer OTHER ==
[~2020-07-16] MED LIST changes: +ALBUTEROL SULF 2.5 MG/0.5ML(0.5%) NEB SOLN ONE
== END | disposition home or self-care (01) ==
LOC: RT 08:48
PROVIDERS: ATTEND Internal Medicine
DX: J12.89 Other viral pneumonia (principal); U07.1 COVID-19
CPT/HCPCS: 94727; 94729

== ENCOUNTER → 2020-07-28 | Outpatient (CLI) | payer OTHER ==
[~2020-07-28] MED LIST changes: -ALBUTEROL SULF 2.5 MG/0.5ML(0.5%) NEB SOLN ONE
[2020-07-28 13:54] LABS: Basophils # (auto) 0.1 10 ^3/uL (0-0.2); Basophils % (auto) 0.8 % (0.0-2.0); Eosinophils # (auto) 0.1 10 ^3/uL (0-0.8); Eosinophils % (auto) 1.8 % (0.0-7.0); Hematocrit 43.1 % (41.0-53.0); Hemoglobin 14.6 g/dL (13.5-17.5); Lymphocytes # (auto) 2.2 10 ^3/uL (0.4-5.4); Lymphocytes % (auto) 28.5 % (10.0-50.0); Mean Corpuscular Hemoglobin 28.4 pg (28.0-32.0); Mean Corpuscular Hgb Conc. 33.8 g/dL (32.0-36.0); Monocytes # (auto) 0.7 10 ^3/uL (0-1.3); Monocytes % (auto) 8.7 % (0.0-12.0); Neutrophils # (auto) 4.7 10 ^3/uL (1.6-8.6); Neutrophils % (auto) 60.2 % (37.0-80.0); Platelet Count (auto) 311 10^3/uL (140-450); Red Blood Cells 5.13 10^6/uL (4.5-5.90); Red Cell Distribution Width 13.7 % (11.8-14.3); White Blood Cell 7.8 10^3/uL (4.4-10.8)
[2020-07-28 14:47] LABS: Free T4 (Free Thyroxine) 1.04 ng/dL (0.89-1.76)
[2020-07-28 14:48] LABS: Prostate Specific Antigen 1.49 ng/mL (0.0-4.0)
== END | disposition home or self-care (01) ==
LOC: LAB 13:16
PROVIDERS: ATTEND Internal Medicine
DX: Z12.5 Encounter for screening for malignant neoplasm of prostate (principal); E11.65 Type 2 diabetes mellitus with hyperglycemia; N39.0 Urinary tract infection, site not specified; R00.0 Tachycardia, unspecified
CPT/HCPCS: 36415; 80307; 82384; 83036; 84153; 84439; 84443; 85025

== ENCOUNTER → 2020-07-30 | Outpatient (CLI) | payer OTHER | END | disposition home or self-care (01) | LOC: LAB 10:30 | PROVIDERS: ATTEND Internal Medicine | DX: E11.9 Type 2 diabetes mellitus without complications (principal); E03.9 Hypothyroidism, unspecified; I50.23 Acute on chronic systolic (congestive) heart failure | CPT/HCPCS: 36415; 83036; 83880; 84443 ==

== ENCOUNTER → 2020-08-28 | Outpatient (CLI) | payer OTHER | END | disposition home or self-care (01) | LOC: LAB 16:12 | PROVIDERS: ATTEND Internal Medicine | DX: G93.3 Postviral and related fatigue syndromes (principal) | CPT/HCPCS: 36415; 85379 ==

== ENCOUNTER → 2020-10-01 | Outpatient (CLI) | payer OTHER ==
[~2020-10-01] VITALS: Ht 170.2 cm; Wt 87.5 kg
[~2020-10-01] MED LIST changes: +ADENOSINE 74 MG in GIVE UN-DILUTED 0 ML IV ONE; +ADENOSINE 90 MG/30 ML INJ IV ONE; +ASPI-231 PO; +GLIP2.5T28 PO; +GLIP5TAB12 PO; +INSREG3 SC; +LEVO-28 PO; +METR500T PO; +PANT40TA2 PO; +[UNRECOGNIZED DRUG - CODE] IV
== END | disposition home or self-care (01) ==
LOC: Rad HDHVI 08:42
PROVIDERS: ATTEND Internal Medicine
DX: R07.89 Other chest pain (principal); E11.9 Type 2 diabetes mellitus without complications; R06.02 Shortness of breath
CPT/HCPCS: 78452; 93005; 96374; 96375; A9500; J0153

== ENCOUNTER → 2020-10-08 | Outpatient (CLI) | payer OTHER ==
[~2020-10-08] MED LIST changes: -ADENOSINE 74 MG in GIVE UN-DILUTED 0 ML IV ONE; -ADENOSINE 90 MG/30 ML INJ IV ONE; -ASPI-231 PO; -GLIP2.5T28 PO; -GLIP5TAB12 PO; -INSREG3 SC; -LEVO-28 PO; -METR500T PO; -PANT40TA2 PO; -[UNRECOGNIZED DRUG - CODE] IV
== END | disposition home or self-care (01) ==
LOC: Rad HDHVI 08:18
PROVIDERS: ATTEND Internal Medicine Cardiovascular Disease
DX: I07.1 Rheumatic tricuspid insufficiency (principal); R00.2 Palpitations; R07.9 Chest pain, unspecified
CPT/HCPCS: 93306

== ENCOUNTER → 2020-12-18 | Outpatient (CLI) | payer OTHER ==
[2020-12-18 15:53] LABS: Basophils # (auto) 0.1 10 ^3/uL (0-0.2); Basophils % (auto) 1.1 % (0.0-2.0); Eosinophils # (auto) 0.2 10 ^3/uL (0-0.8); Eosinophils % (auto) 2.1 % (0.0-7.0); Hemoglobin 13.9 g/dL (13.5-17.5); Lymphocytes # (auto) 2.6 10 ^3/uL (0.4-5.4); Lymphocytes % (auto) 31.1 % (10.0-50.0); Mean Corpuscular Hemoglobin 29.1 pg (28.0-32.0); Mean Corpuscular Volume 85.7 fL (80.0-100.0); Monocytes # (auto) 0.7 10 ^3/uL (0-1.3); Monocytes % (auto) 7.9 % (0.0-12.0); Neutrophils # (auto) 4.8 10 ^3/uL (1.6-8.6); Neutrophils % (auto) 57.8 % (37.0-80.0); Nucleated Red Blood Cells % 0.3 %; Platelet Count (auto) 320 10^3/uL (140-450); Red Blood Cells 4.78 10^6/uL (4.5-5.90); White Blood Cell 8.3 10^3/uL (4.4-10.8)
[2020-12-18 16:02] LABS: Calcium 9.6 mg/dL (8.5-10.1); Potassium 3.9 mmol/L (3.5-5.1)
[2020-12-18 16:08] LABS: BUN/Creatinine Ratio 35.5; Bilirubin, Total 0.4 mg/dL (0.2-1.0); Total Protein 7.9 g/dL (6.4-8.2)
== END | disposition home or self-care (01) ==
LOC: LAB 14:53
PROVIDERS: ATTEND Internal Medicine
DX: E11.9 Type 2 diabetes mellitus without complications (principal); G62.9 Polyneuropathy, unspecified
CPT/HCPCS: 36415; 80053; 82607; 83036; 85025

== ENCOUNTER 2021-04-16 13:14 | Inpatient (IN) | payer OTHER ==
[~2021-04-16] VITALS: Ht 170.2 cm; Wt 95.1 kg
[2021-04-16] MEDS ORDERED: SODIUM CHLORIDE 0.9% 1,000 ML IVB ONE (13:30)
[2021-04-16] MEDS ORDERED: MORPHINE SULFATE 4 MG/ML SYR/VIAL IV ONE (13:30)
[2021-04-16] MEDS ORDERED: ONDANSETRON HCL 4 MG/2 ML VIAL IV ONE (13:30)
[2021-04-16] MEDS ORDERED: SODIUM CHLORIDE 0.9% 1,000 ML IV ONE (13:30)
[2021-04-16 14:54] LABS: Basophils # (auto) 0 10 ^3/uL (0-0.2); Basophils % (auto) 0.3 % (0.0-2.0); Eosinophils # (auto) 0 10 ^3/uL (0-0.8); Hematocrit 45.1 % (41.0-53.0); Hemoglobin 15.5 g/dL (13.5-17.5); Lymphocytes # (auto) 0.7 10 ^3/uL (0.4-5.4); Lymphocytes % (auto) 4.7 % (10.0-50.0); Mean Corpuscular Hemoglobin 29.1 pg (28.0-32.0); Mean Corpuscular Hgb Conc. 34.4 g/dL (32.0-36.0); Mean Corpuscular Volume 84.6 fL (80.0-100.0); Monocytes # (auto) 0.5 10 ^3/uL (0-1.3); Monocytes % (auto) 3.8 % (0.0-12.0); Neutrophils # (auto) 13.1 10 ^3/uL (1.6-8.6); Neutrophils % (auto) 91.2 % (37.0-80.0); Red Blood Cells 5.33 10^6/uL (4.5-5.90); White Blood Cell 14.3 10^3/uL (4.4-10.8)
[2021-04-16] MEDS ORDERED: metroNIDAZOLE 500MG/100ML 100 ML IV ONE ×2 (15:00→16:30)
[2021-04-16] MEDS ORDERED: cefTRIAXone 1GM/50ML D5W 50 ML IV ONE ×2 (15:00→18:00)
[2021-04-16 15:14] LABS: Alanine Aminotransferase 330 U/L (16-61); Albumin 4.1 g/dL (3.4-5.0); Anion Gap 10 (5-15); BUN/Creatinine Ratio 23.6; Blood Urea Nitrogen 17 mg/dL (7-18); Calcium 8.9 mg/dL (8.5-10.1); Carbon Dioxide 22 mmol/L (21-32); Chloride 102 mmol/L (98-107); GFR African American 146 mL/min; GFR Non-African American 121 mL/min; Glucose 266 mg/dL (74-106); Magnesium 2.2 mg/dL (1.6-2.6); Potassium 3.9 mmol/L (3.5-5.1); Sodium 134 mmol/L (136-145)
[2021-04-16 15:17] LABS: Alkaline Phosphatase 79 U/L (45-117); Aspartate Aminotransferase 450 U/L (15-37); Bilirubin, Total 2.2 mg/dL (0.2-1.0); Total Protein 8.2 g/dL (6.4-8.2)
[2021-04-16 15:20] LABS: Lactic Acid w/Reflex 2.9 mmol/L (0.4-2.0)
[2021-04-16] MEDS ORDERED: SUCRALFATE 1 GM/10 ML ORAL SUSP PO ONE (16:00)
[2021-04-16] MEDS ORDERED: DEXTROSE (50%) 50ML SYRG IV PRN (16:00)
[2021-04-16] MEDS ORDERED: PANTOPRAZOLE 40 MG/10 ML VIAL INJ IV ONE (16:00)
[2021-04-16] MEDS ORDERED: MORPHINE SULF INJ 2 MG/ML SYRINGE 1ML IV PRN ×2 (16:00→18:45)
[2021-04-16] MEDS ORDERED: NITROGLYCERIN 0.4 MG SL TAB SL PRN ×2 (16:00→18:45)
[2021-04-16 16:02] LABS: Lipase 15331 U/L (73-393)
[2021-04-16] MEDS ORDERED: GLIP5TAB12 PO (16:48)
[2021-04-16] MEDS: InsuLIN REG 1unit/0.01ml Soln (100units/ml) SC SCH ×2 (17:05→21:53)
[2021-04-16] MEDS: ACCU-CHEK COMFORT CURVE STRIP VI SCH ×2 (17:06→21:49)
[2021-04-16] MEDS ORDERED: ACETAMINOPHEN 325 MG TAB PO PRN (18:45)
[2021-04-16] MEDS ORDERED: ONDANSETRON HCL 4 MG/2 ML VIAL IV PRN (18:45)
[2021-04-16] MEDS ORDERED: LORazepam 0.5 MG TAB PO PRN (18:45)
[2021-04-16] MEDS ORDERED: DOCUSATE SOD 100 MG CAP PO PRN (18:45)
[2021-04-16] MEDS ORDERED: HYDROcodone-ACET 5/325MG TAB PO PRN (18:45)
[2021-04-16] MEDS ORDERED: ALUM & MAG HYDROX-SIMETH LIQ(MAALOX) 30 ML PO PRN (18:45)
[2021-04-16 18:46] LABS: Urine Bacteria NONE SEEN /hpf (None Seen); Urine Blood Negative /uL (Negative); Urine Specific Gravity 1.022 (1.001-1.035); Urine WBC <1 /hpf (0 - 3)
[2021-04-16 19:29] LABS: Alcohol, Urine < 3.0 mg/dL (0-10); Amphetamine Screen, Urine NEGATIVE (NEGATIVE); Barbiturate Scree,Urine NEGATIVE (NEGATIVE); Benzodiazephine Screen, Urine NEGATIVE (NEGATIVE); Cannabinoid Screen, Urine NEGATIVE (NEGATIVE); Cocaine Screen, Urine NEGATIVE (NEGATIVE); Opiate Scree,Urine POSITIVE (NEGATIVE); Phencyclidine Screen, Urine NEGATIVE (NEGATIVE)
[2021-04-16] MEDS: MORPHINE SULF INJ 2 MG/ML SYRINGE 1ML IV PRN (20:08)
[2021-04-16] MEDS: SODIUM CHLORIDE 0.9% 1,000 ML IV SCH (21:28)
[2021-04-16 21:43] LABS: Cholesterol 199 mg/dL (< 200); HDL Cholesterol 49 mg/dL (40-59); LDL Cholesterol 118 mg/dL (< 100); Triglycerides 159 mg/dL (< 150)
[2021-04-16] MEDS: SUCRALFATE 1 GM/10 ML ORAL SUSP PO SCH (21:49)
[2021-04-16 22:13] VITALS: BP 99/70
[2021-04-16] MEDS ORDERED: GLIP2.5T28 PO (22:32)
[2021-04-17] MEDS: MORPHINE SULF INJ 2 MG/ML SYRINGE 1ML IV PRN ×6 (01:00→23:58)
[2021-04-17 05:00] VITALS: BP 109/67
[2021-04-17 05:28] LABS: Basophils # (auto) 0 10 ^3/uL (0-0.2); Basophils % (auto) 0.1 % (0.0-2.0); Eosinophils # (auto) 0 10 ^3/uL (0-0.8); Hematocrit 40.3 % (41.0-53.0); Lymphocytes # (auto) 1.8 10 ^3/uL (0.4-5.4); Mean Corpuscular Hemoglobin 29.5 pg (28.0-32.0); Mean Corpuscular Hgb Conc. 34.7 g/dL (32.0-36.0); Mean Corpuscular Volume 85.2 fL (80.0-100.0); Monocytes # (auto) 1.1 10 ^3/uL (0-1.3); Monocytes % (auto) 6.9 % (0.0-12.0); Neutrophils # (auto) 13.2 10 ^3/uL (1.6-8.6); Nucleated Red Blood Cells % 0.1 %; Red Blood Cells 4.72 10^6/uL (4.5-5.90); Red Cell Distribution Width 14.2 % (11.8-14.3); White Blood Cell 16.2 10^3/uL (4.4-10.8)
[2021-04-17 05:41] LABS: Albumin 3.1 g/dL (3.4-5.0); Calcium 8.1 mg/dL (8.5-10.1); Chloride 106 mmol/L (98-107); Potassium 3.4 mmol/L (3.5-5.1); Sodium 138 mmol/L (136-145)
[2021-04-17 05:49] LABS: Alanine Aminotransferase 216 U/L (16-61); Alkaline Phosphatase 64 U/L (45-117); Anion Gap 8 (5-15); Aspartate Aminotransferase 141 U/L (15-37); BUN/Creatinine Ratio 29.3; Bilirubin, Total 1.2 mg/dL (0.2-1.0); Blood Urea Nitrogen 17 mg/dL (7-18); Carbon Dioxide 24 mmol/L (21-32); GFR African American 188 mL/min; GFR Non-African American 155 mL/min; Glucose 135 mg/dL (74-106); Lipase 6515 U/L (73-393); Magnesium 2.2 mg/dL (1.6-2.6); Phosphorus 3.2 mg/dL (2.5-4.90); Total Protein 7.3 g/dL (6.4-8.2)
[2021-04-17 05:50] LABS: INR 1.03 (0.9-1.15); Partial Thromboplastin Time 25.8 sec (23.0-31.2)
[2021-04-17] MEDS: ACCU-CHEK COMFORT CURVE STRIP VI SCH ×4 (06:05→21:46)
[2021-04-17] MEDS: metroNIDAZOLE 500MG/100ML 100 ML IV SCH ×3 (06:09→21:45)
[2021-04-17] MEDS: InsuLIN REG 1unit/0.01ml Soln (100units/ml) SC SCH ×4 (06:09→21:47)
[2021-04-17] MEDS: SUCRALFATE 1 GM/10 ML ORAL SUSP PO SCH ×4 (06:10→21:45)
[2021-04-17] MEDS: ASPirin 81 mg TAB PO SCH (08:32)
[2021-04-17] MEDS: PANTOPRAZOLE 40 MG/10 ML VIAL INJ IV SCH (08:32)
[2021-04-17 09:00] VITALS: BP 119/65
[2021-04-17] MEDS: SODIUM CHLORIDE 0.9% 1,000 ML IV SCH (11:36)
[2021-04-17] MEDS ORDERED: POTASSIUM CHLORIDE 20 MEQ, LIDOCAINE 1% (LOCAL ANESTH.) 2 ML in SODIUM CHL 0.9% 100 ML IV ONE (12:45)
[2021-04-17 13:00] VITALS: BP 123/79
[2021-04-17] MEDS ORDERED: VANCOMYCIN PER PHARMACY 0 MG IV SCH (13:00)
[2021-04-17] MEDS: VANCOMYCIN 1GM/250ML 250 ML IV SCH (16:15)
[2021-04-17 16:57] VITALS: BP 118/56
[2021-04-17] MEDS ORDERED: cefTRIAXone 1GM/50ML D5W 50 ML IV SCH (21:00)
[2021-04-17 22:00] VITALS: BP 126/72
[2021-04-18] MEDS: VANCOMYCIN 1GM/250ML 250 ML IV SCH ×3 (00:53→21:20)
[2021-04-18] MEDS: SODIUM CHLORIDE 0.9% 1,000 ML IV SCH ×2 (04:15→20:45)
[2021-04-18] MEDS: MORPHINE SULF INJ 2 MG/ML SYRINGE 1ML IV PRN ×5 (04:17→21:21)
[2021-04-18 05:00] VITALS: BP 148/84
[2021-04-18 05:42] LABS: Basophils # (auto) 0 10 ^3/uL (0-0.2); Basophils % (auto) 0.1 % (0.0-2.0); Eosinophils # (auto) 0 10 ^3/uL (0-0.8); Hemoglobin 13.1 g/dL (13.5-17.5); Lymphocytes # (auto) 1.2 10 ^3/uL (0.4-5.4); Lymphocytes % (auto) 6.1 % (10.0-50.0); Mean Corpuscular Hemoglobin 29.4 pg (28.0-32.0); Mean Corpuscular Hgb Conc. 34.4 g/dL (32.0-36.0); Mean Corpuscular Volume 85.6 fL (80.0-100.0); Monocytes # (auto) 1.4 10 ^3/uL (0-1.3); Monocytes % (auto) 6.7 % (0.0-12.0); Neutrophils # (auto) 17.7 10 ^3/uL (1.6-8.6); Neutrophils % (auto) 87.1 % (37.0-80.0); Red Blood Cells 4.44 10^6/uL (4.5-5.90); Red Cell Distribution Width 14.2 % (11.8-14.3); White Blood Cell 20.3 10^3/uL (4.4-10.8)
[2021-04-18 06:10] LABS: Potassium 3.2 mmol/L (3.5-5.1)
[2021-04-18 06:19] LABS: Albumin 2.9 g/dL (3.4-5.0); BUN/Creatinine Ratio 32.7; Calcium 7.7 mg/dL (8.5-10.1); Total Protein 7.3 g/dL (6.4-8.2)
[2021-04-18] MEDS: SUCRALFATE 1 GM/10 ML ORAL SUSP PO SCH ×4 (06:33→22:00)
[2021-04-18] MEDS: metroNIDAZOLE 500MG/100ML 100 ML IV SCH (06:33)
[2021-04-18] MEDS: ACCU-CHEK COMFORT CURVE STRIP VI SCH ×4 (06:34→21:40)
[2021-04-18] MEDS: InsuLIN REG 1unit/0.01ml Soln (100units/ml) SC SCH ×2 (06:34→11:17)
[2021-04-18] MEDS: ASPirin 81 mg TAB PO SCH (08:00)
[2021-04-18] MEDS: PANTOPRAZOLE 40 MG/10 ML VIAL INJ IV SCH (08:00)
[2021-04-18 09:00] VITALS: BP 131/74
[2021-04-18] MEDS ORDERED: POTASSIUM CHLORIDE 40 MEQ, LIDOCAINE 1% (LOCAL ANESTH.) 4 ML in SODIUM CHL 0.9% 250 ML IV ONE (11:15)
[2021-04-18 12:54] VITALS: BP 130/72
[2021-04-18] MEDS: PIPERACILLIN-TAZO 4.5GM 100 ML IV SCH ×2 (13:16→17:23)
[2021-04-18] MEDS ORDERED: TPN PER PHARMACY 0 ML IV SCH (14:15)
[2021-04-18] MEDS ORDERED: DEXTROSE (50%) 50ML SYRG IV PRN (14:30)
[2021-04-18 14:47] LABS: Pre Albumin 15.2 mg/dL (20.0-40.0)
[2021-04-18 15:01] LABS: Magnesium 2.3 mg/dL (1.6-2.6); Phosphorus 1.5 mg/dL (2.5-4.90)
[2021-04-18 16:43] VITALS: BP 143/89
[2021-04-18] MEDS ORDERED: SODIUM CHL 0.9% IV ONE (17:00)
[2021-04-18] MEDS ORDERED: SODIUM PHOSPHATES IV ONE (17:00)
[2021-04-18] MEDS ORDERED: InsuLIN REG 1unit/0.01ml Soln (100units/ml) SC SCH ×2 (17:00→22:00)
[2021-04-18] MEDS ORDERED: AMINO ACID INFUSION IN D10W 1,000 ML IV NR (20:00)
[2021-04-18 22:00] VITALS: BP 148/88
[2021-04-19] MEDS ORDERED: DEXTROSE (50%) 50ML SYRG IV SCH
[2021-04-19] MEDS: ACCU-CHEK COMFORT CURVE STRIP VI SCH ×5 (00:09→23:15)
[2021-04-19] MEDS: PIPERACILLIN-TAZO 4.5GM 100 ML IV SCH ×3 (00:09→11:32)
[2021-04-19] MEDS: InsuLIN REG 1unit/0.01ml Soln (100units/ml) SC SCH ×5 (00:11→23:17)
[2021-04-19] MEDS: MORPHINE SULF INJ 2 MG/ML SYRINGE 1ML IV PRN ×5 (01:11→23:02)
[2021-04-19 05:00] VITALS: BP 134/83
[2021-04-19 06:08] LABS: Basophils # (auto) 0.1 10 ^3/uL (0-0.2); Basophils % (auto) 0.3 % (0.0-2.0); Eosinophils # (auto) 0 10 ^3/uL (0-0.8); Eosinophils % (auto) 0.2 % (0.0-7.0); Hematocrit 33.9 % (41.0-53.0); Hemoglobin 11.9 g/dL (13.5-17.5); Lymphocytes # (auto) 1.4 10 ^3/uL (0.4-5.4); Lymphocytes % (auto) 6.7 % (10.0-50.0); Mean Corpuscular Hemoglobin 29.9 pg (28.0-32.0); Mean Corpuscular Hgb Conc. 35.1 g/dL (32.0-36.0); Mean Corpuscular Volume 85.2 fL (80.0-100.0); Monocytes # (auto) 1.4 10 ^3/uL (0-1.3); Monocytes % (auto) 6.7 % (0.0-12.0); Neutrophils % (auto) 86.1 % (37.0-80.0); Red Blood Cells 3.98 10^6/uL (4.5-5.90); Red Cell Distribution Width 14.1 % (11.8-14.3); White Blood Cell 20.9 10^3/uL (4.4-10.8)
[2021-04-19 06:33] LABS: Albumin 2.4 g/dL (3.4-5.0); Calcium 7.9 mg/dL (8.5-10.1); Magnesium 2.4 mg/dL (1.6-2.6); Potassium 3.2 mmol/L (3.5-5.1)
[2021-04-19 06:37] LABS: BUN/Creatinine Ratio 25.9
[2021-04-19] MEDS: SUCRALFATE 1 GM/10 ML ORAL SUSP PO SCH ×4 (06:46→21:32)
[2021-04-19] MEDS: VANCOMYCIN 1GM/250ML 250 ML IV SCH ×2 (06:46→18:14)
[2021-04-19 09:00] VITALS: BP 113/63
[2021-04-19] MEDS: PANTOPRAZOLE 40 MG/10 ML VIAL INJ IV SCH (09:28)
[2021-04-19] MEDS: ASPirin 81 mg TAB PO SCH (09:28)
[2021-04-19] MEDS ORDERED: POTASSIUM PHOSPHATE 44 MEQ in D5W 5% 250 ML IV ONE (10:30)
[2021-04-19 12:30] VITALS: BP 132/82
[2021-04-19] MEDS: SODIUM CHLORIDE 0.9% 1,000 ML IV SCH (12:59)
[2021-04-19 13:51] LABS: INR 1.09 (0.9-1.15); Partial Thromboplastin Time 31.9 sec (23.0-31.2)
[2021-04-19] MEDS: CEFEPIME 1 GM in SODIUM CHL 0.9% 50 ML IV SCH ×2 (14:29→21:31)
[2021-04-19] MEDS ORDERED: SODIUM CHLORIDE 0.9% 1,000 ML IV SCH (16:00)
[2021-04-19] MEDS ORDERED: ENOXAPARIN SOD 40 MG/0.4 ML SYRINGE SC ONE (16:00)
[2021-04-19 17:00] VITALS: BP 127/79
[2021-04-19] MEDS ORDERED: LIDOCAINE 1% (LOCAL ANESTH.) PF 5ml SDV ID ONE (18:15)
[2021-04-19] MEDS ORDERED: ADENOSINE 6 MG/2 ML INJ IV ONE (19:30)
[2021-04-19] MEDS ORDERED: PPN PER PHARMACY IV NR ×12 (20:00)
[2021-04-19 21:43] VITALS: BP 141/85
[2021-04-19] MEDS ORDERED: FUROSEMIDE 40 MG/4 ML VIAL IV ONE (21:45)
[2021-04-20] MEDS: VANCOMYCIN 1GM/250ML 250 ML IV SCH (03:12)
[2021-04-20] MEDS: MORPHINE SULF INJ 2 MG/ML SYRINGE 1ML IV PRN ×4 (03:20→23:41)
[2021-04-20 05:13] VITALS: BP 138/75
[2021-04-20] MEDS: ACCU-CHEK COMFORT CURVE STRIP VI SCH ×4 (06:11→23:41)
[2021-04-20] MEDS: CEFEPIME 1 GM in SODIUM CHL 0.9% 50 ML IV SCH ×3 (06:11→21:13)
[2021-04-20] MEDS: SUCRALFATE 1 GM/10 ML ORAL SUSP PO SCH ×4 (06:16→21:12)
[2021-04-20] MEDS: InsuLIN REG 1unit/0.01ml Soln (100units/ml) SC SCH ×4 (06:16→23:37)
[2021-04-20 07:41] LABS: Basophils # (auto) 0.1 10 ^3/uL (0-0.2); Basophils % (auto) 0.6 % (0.0-2.0); Eosinophils # (auto) 0.3 10 ^3/uL (0-0.8); Eosinophils % (auto) 1.7 % (0.0-7.0); Hematocrit 34.4 % (41.0-53.0); Hemoglobin 11.8 g/dL (13.5-17.5); Lymphocytes # (auto) 1.6 10 ^3/uL (0.4-5.4); Lymphocytes % (auto) 9.6 % (10.0-50.0); Mean Corpuscular Hemoglobin 29.2 pg (28.0-32.0); Mean Corpuscular Hgb Conc. 34.4 g/dL (32.0-36.0); Mean Corpuscular Volume 84.9 fL (80.0-100.0); Monocytes # (auto) 1.2 10 ^3/uL (0-1.3); Monocytes % (auto) 7.3 % (0.0-12.0); Neutrophils # (auto) 13.6 10 ^3/uL (1.6-8.6); Neutrophils % (auto) 80.8 % (37.0-80.0); Red Blood Cells 4.05 10^6/uL (4.5-5.90); White Blood Cell 16.8 10^3/uL (4.4-10.8)
[2021-04-20 08:02] LABS: Potassium 3.1 mmol/L (3.5-5.1)
[2021-04-20 08:10] LABS: Albumin 2.4 g/dL (3.4-5.0); BUN/Creatinine Ratio 25.4; Bilirubin, Total 0.7 mg/dL (0.2-1.0); Calcium 7.8 mg/dL (8.5-10.1); Magnesium 2.7 mg/dL (1.6-2.6); Phosphorus 1.8 mg/dL (2.5-4.90); Total Protein 7.2 g/dL (6.4-8.2)
[2021-04-20] MEDS: PANTOPRAZOLE 40 MG/10 ML VIAL INJ IV SCH (08:12)
[2021-04-20] MEDS: ENOXAPARIN SOD 40 MG/0.4 ML SYRINGE SC SCH (08:12)
[2021-04-20] MEDS: ASPirin 81 mg TAB PO SCH (08:12)
[2021-04-20 09:00] VITALS: BP 111/67
[2021-04-20] MEDS: metroNIDAZOLE 500MG/100ML 100 ML IV SCH ×2 (10:15→18:06)
[2021-04-20] MEDS ORDERED: POTASSIUM CHL 20MEQ/100ML 100 ML IV ONE (10:30)
[2021-04-20] MEDS ORDERED: FUROSEMIDE 40 MG/4 ML VIAL IV ONE (11:30)
[2021-04-20 12:30] VITALS: BP 120/74
[2021-04-20] MEDS ORDERED: POTASSIUM PHOSPHATE 44 MEQ in D5W 5% 250 ML IV ONE (12:30)
[2021-04-20] MEDS: LEVALBUTEROL HCL 1.25 MG/3 ML NEB NEB SCH ×3 (13:12→22:22)
[2021-04-20] MEDS: IPRATROPIUM BROM 0.5 MG/2.5ML INH SOL NEB SCH ×3 (13:13→22:22)
[2021-04-20 17:00] VITALS: BP 138/89
[2021-04-20] MEDS ORDERED: TPN PER PHARMACY IV NR ×10 (20:00)
[2021-04-20] MEDS ORDERED: PPN PER PHARMACY IV NR ×11 (20:00)
[2021-04-20 21:43] VITALS: BP 138/89
[2021-04-20 22:00] VITALS: BP 121/87
[2021-04-21] MEDS: metroNIDAZOLE 500MG/100ML 100 ML IV SCH ×3 (02:00→17:24)
[2021-04-21] MEDS: LEVALBUTEROL HCL 1.25 MG/3 ML NEB NEB SCH ×5 (02:21→21:51)
[2021-04-21] MEDS: IPRATROPIUM BROM 0.5 MG/2.5ML INH SOL NEB SCH ×5 (02:21→21:51)
[2021-04-21 05:29] VITALS: BP 135/86
[2021-04-21 06:04] LABS: Basophils # (auto) 0.1 10 ^3/uL (0-0.2); Basophils % (auto) 0.6 % (0.0-2.0); Eosinophils # (auto) 0.3 10 ^3/uL (0-0.8); Eosinophils % (auto) 2.2 % (0.0-7.0); Hematocrit 35.5 % (41.0-53.0); Hemoglobin 12.2 g/dL (13.5-17.5); Lymphocytes # (auto) 1.5 10 ^3/uL (0.4-5.4); Lymphocytes % (auto) 9.5 % (10.0-50.0); Mean Corpuscular Hemoglobin 29.1 pg (28.0-32.0); Mean Corpuscular Hgb Conc. 34.5 g/dL (32.0-36.0); Mean Corpuscular Volume 84.3 fL (80.0-100.0); Monocytes # (auto) 1.3 10 ^3/uL (0-1.3); Monocytes % (auto) 8.5 % (0.0-12.0); Neutrophils # (auto) 12.5 10 ^3/uL (1.6-8.6); Neutrophils % (auto) 79.2 % (37.0-80.0); Nucleated Red Blood Cells % 0.1 %; Red Blood Cells 4.21 10^6/uL (4.5-5.90); Red Cell Distribution Width 13.9 % (11.8-14.3); White Blood Cell 15.8 10^3/uL (4.4-10.8)
[2021-04-21] MEDS: ACCU-CHEK COMFORT CURVE STRIP VI SCH ×3 (06:08→17:23)
[2021-04-21] MEDS: CEFEPIME 1 GM in SODIUM CHL 0.9% 50 ML IV SCH ×3 (06:08→22:15)
[2021-04-21] MEDS: SUCRALFATE 1 GM/10 ML ORAL SUSP PO SCH ×4 (06:08→22:16)
[2021-04-21] MEDS: InsuLIN REG 1unit/0.01ml Soln (100units/ml) SC SCH ×3 (06:14→17:25)
[2021-04-21] MEDS: MORPHINE SULF INJ 2 MG/ML SYRINGE 1ML IV PRN ×3 (06:22→19:29)
[2021-04-21 06:32] LABS: Potassium 3.4 mmol/L (3.5-5.1)
[2021-04-21 06:41] LABS: Albumin 1.9 g/dL (3.4-5.0); BUN/Creatinine Ratio 24.6; Bilirubin, Total 0.5 mg/dL (0.2-1.0); Calcium 8.1 mg/dL (8.5-10.1); Magnesium 2.4 mg/dL (1.6-2.6); Phosphorus 2.7 mg/dL (2.5-4.90); Total Protein 7.3 g/dL (6.4-8.2)
[2021-04-21] MEDS ORDERED: POTASSIUM PHOSPHATE 22 MEQ in SODIUM CHL 0.9% 100 ML IV ONE (08:45)
[2021-04-21 09:00] VITALS: BP 114/71
[2021-04-21] MEDS: PANTOPRAZOLE 40 MG/10 ML VIAL INJ IV SCH (09:22)
[2021-04-21] MEDS: ASPirin 81 mg TAB PO SCH (09:22)
[2021-04-21] MEDS: ENOXAPARIN SOD 40 MG/0.4 ML SYRINGE SC SCH (09:23)
[2021-04-21 12:59] VITALS: BP 132/90
[2021-04-21 17:00] VITALS: BP 141/80
[2021-04-21] MEDS ORDERED: TPN PER PHARMACY IV NR ×11 (20:00)
[2021-04-21 22:00] VITALS: BP 143/93
[2021-04-22] MEDS: MORPHINE SULF INJ 2 MG/ML SYRINGE 1ML IV PRN (00:38)
[2021-04-22] MEDS: InsuLIN REG 1unit/0.01ml Soln (100units/ml) SC SCH ×3 (00:47→12:10)
[2021-04-22] MEDS: metroNIDAZOLE 500MG/100ML 100 ML IV SCH ×2 (01:22→10:15)
[2021-04-22] MEDS: LEVALBUTEROL HCL 1.25 MG/3 ML NEB NEB SCH ×4 (02:49→13:34)
[2021-04-22] MEDS: IPRATROPIUM BROM 0.5 MG/2.5ML INH SOL NEB SCH ×4 (02:49→13:34)
[2021-04-22 05:00] VITALS: BP 120/68
[2021-04-22] MEDS: CEFEPIME 1 GM in SODIUM CHL 0.9% 50 ML IV SCH ×2 (05:21→14:00)
[2021-04-22] MEDS: ACCU-CHEK COMFORT CURVE STRIP VI SCH ×3 (05:21→11:57)
[2021-04-22] MEDS: SUCRALFATE 1 GM/10 ML ORAL SUSP PO SCH ×2 (06:39→11:40)
[2021-04-22 06:47] LABS: Basophils # (auto) 0.1 10 ^3/uL (0-0.2); Basophils % (auto) 0.9 % (0.0-2.0); Eosinophils # (auto) 0.3 10 ^3/uL (0-0.8); Hematocrit 35.5 % (41.0-53.0); Hemoglobin 12.2 g/dL (13.5-17.5); Lymphocytes # (auto) 1.7 10 ^3/uL (0.4-5.4); Lymphocytes % (auto) 10.9 % (10.0-50.0); Mean Corpuscular Hgb Conc. 34.2 g/dL (32.0-36.0); Mean Corpuscular Volume 84.7 fL (80.0-100.0); Monocytes # (auto) 1.3 10 ^3/uL (0-1.3); Monocytes % (auto) 8.1 % (0.0-12.0); Neutrophils # (auto) 12.6 10 ^3/uL (1.6-8.6); Neutrophils % (auto) 78.1 % (37.0-80.0); Red Blood Cells 4.19 10^6/uL (4.5-5.90); Red Cell Distribution Width 14.1 % (11.8-14.3); White Blood Cell 16.1 10^3/uL (4.4-10.8)
[2021-04-22 07:05] LABS: Albumin 2.4 g/dL (3.4-5.0); Calcium 8.6 mg/dL (8.5-10.1); Magnesium 2.5 mg/dL (1.6-2.6); Potassium 3.8 mmol/L (3.5-5.1)
[2021-04-22 07:11] LABS: Bilirubin, Total 0.4 mg/dL (0.2-1.0); Phosphorus 2.8 mg/dL (2.5-4.90); Total Protein 7.4 g/dL (6.4-8.2)
[2021-04-22 09:00] VITALS: BP 131/78
[2021-04-22] MEDS: ENOXAPARIN SOD 40 MG/0.4 ML SYRINGE SC SCH (10:15)
[2021-04-22] MEDS: PANTOPRAZOLE 40 MG/10 ML VIAL INJ IV SCH (10:15)
[2021-04-22] MEDS: ASPirin 81 mg TAB PO SCH (10:15)
[2021-04-22 13:00] VITALS: BP 134/82
[2021-04-22] MEDS ORDERED: ASPI-231 PO (13:39)
[2021-04-22] MEDS ORDERED: LEVO-28 PO (13:39)
[2021-04-22] MEDS ORDERED: PANT40TA2 PO (13:39)
[2021-04-22] MEDS ORDERED: METR500T PO (13:39)
[2021-04-22] MEDS ORDERED: FUROSEMIDE 20 MG/2 ML VIAL IV ONE (14:30)
[2021-04-22] MEDS ORDERED: TPN PER PHARMACY IV NR ×10 (20:00)
== END 2021-04-22 16:16 | disposition home health service (06) | DRG 444 ==
LOC: ER 13:14 → TELE 15:48 → TELE-WESTW 19:27
PROVIDERS: ADMIT Hospitalist; ATTEND Internal Medicine
PROC: 02HV33Z Insertion of Infusion Device into Superior Vena Cava, Percutaneous Approach (ICD-10-PCS; principal; 2021-04-20)
DX: K80.01 Calculus of gallbladder with acute cholecystitis with obstruction (principal); K85.10 Biliary acute pancreatitis without necrosis or infection; N17.0 Acute kidney failure with tubular necrosis; R65.11 Systemic inflammatory response syndrome (SIRS) of non-infectious origin with acute organ dysfunction; J96.20 Acute and chronic respiratory failure, unspecified whether with hypoxia or hypercapnia; E87.1 Hypo-osmolality and hyponatremia; I47.1 Supraventricular tachycardia; E66.9 Obesity, unspecified; N18.9 Chronic kidney disease, unspecified; Z20.822 Contact with and (suspected) exposure to COVID-19; E55.9 Vitamin D deficiency, unspecified; E87.6 Hypokalemia; E11.22 Type 2 diabetes mellitus with diabetic chronic kidney disease; K82.8 Other specified diseases of gallbladder; R74.01 Elevation of levels of liver transaminase levels; K57.90 Diverticulosis of intestine, part unspecified, without perforation or abscess without bleeding; Z79.82 Long term (current) use of aspirin; Z83.3 Family history of diabetes mellitus; Z68.32 Body mass index [BMI] 32.0-32.9, adult; Z86.16 Personal history of COVID-19; Z87.01 Personal history of pneumonia (recurrent)
CPT/HCPCS: 36415; 36569; 71045; 74176; 74181; 76705; 80053; 80061; 80202; 80307; 81001; 82040; 82150; 82306; 82962; 83036; 83605; 83690; 83735; 83880; 84100; 84132; 84443; 84478; 84484; 85025; 85610; 85730; 87040; 87086; 87426; 93005; 94640; 96365; 96368; 96375; C9113; G0378; J0153; J0696; J1815; J2001; J2405; J2543; J3480; J3490; J7060; J7131

== ENCOUNTER 2021-05-19 07:07 | Inpatient (IN) | payer OTHER ==
[2021-05-18 15:26] LABS: Basophils # (auto) 0.1 10 ^3/uL (0-0.2); Basophils % (auto) 0.6 % (0.0-2.0); Eosinophils # (auto) 0.1 10 ^3/uL (0-0.8); Eosinophils % (auto) 0.6 % (0.0-7.0); Hematocrit 38.7 % (41.0-53.0); Hemoglobin 13.3 g/dL (13.5-17.5); Lymphocytes # (auto) 2.4 10 ^3/uL (0.4-5.4); Lymphocytes % (auto) 26.1 % (10.0-50.0); Mean Corpuscular Hemoglobin 28.9 pg (28.0-32.0); Mean Corpuscular Hgb Conc. 34.4 g/dL (32.0-36.0); Mean Corpuscular Volume 83.9 fL (80.0-100.0); Monocytes # (auto) 0.8 10 ^3/uL (0-1.3); Monocytes % (auto) 8.5 % (0.0-12.0); Neutrophils # (auto) 5.9 10 ^3/uL (1.6-8.6); Neutrophils % (auto) 64.2 % (37.0-80.0); Nucleated Red Blood Cells % 0.2 %; Red Blood Cells 4.61 10^6/uL (4.5-5.90); Red Cell Distribution Width 14.6 % (11.8-14.3); White Blood Cell 9.2 10^3/uL (4.4-10.8)
[2021-05-18 15:41] LABS: Urine Bacteria NONE SEEN /hpf (None Seen); Urine Blood Negative /uL (Negative); Urine Mucus FEW (None Seen); Urine Specific Gravity 1.016 (1.001-1.035); Urine WBC 1 /hpf (0 - 3)
[2021-05-18 16:07] LABS: Albumin 3.7 g/dL (3.4-5.0); Calcium 9.3 mg/dL (8.5-10.1)
[2021-05-18 16:14] LABS: BUN/Creatinine Ratio 19.4; Bilirubin, Total 0.5 mg/dL (0.2-1.0); Total Protein 8.5 g/dL (6.4-8.2)
[~2021-05-19] VITALS: Ht 170.2 cm; Wt 81.0 kg
[~2021-05-19 07:07] MED LIST changes: -ALBUAER3 IN; -ASCO10003 PO; +ASPI1TAB20 PO; -ASPI81CH43 PO; -ATOR10TA52 PO; -CHOL20007 PO; +INSREG3 SC; +LEVO-28 PO; -METF-370 PO; +METR500T PO; +PANT40TA2 PO; +[UNRECOGNIZED DRUG - CODE] IV
[2021-05-19] MEDS ORDERED: ceFAZolin 1GM/50ML 100 ML IV ONE (07:33)
[2021-05-19] MEDS ORDERED: BUPIVACAINE W/ EPINEPH 0.25% INJ 50ML MDV ONE (09:10)
[2021-05-19] MEDS ORDERED: SUCCINYLCHOLINE CHLORIDE 20 MG/ML 10ML VIAL IV ONE (09:19)
[2021-05-19] MEDS ORDERED: fentaNYL CITRATE 5 ML ONE (09:20)
[2021-05-19] MEDS ORDERED: LIDOCAINE 2% (LOCAL ANESTH.) PF 5ml SDV ONE (09:21)
[2021-05-19] MEDS ORDERED: ONDANSETRON HCL 4 MG/2 ML VIAL ONE (09:21)
[2021-05-19] MEDS ORDERED: PROPOFOL 10 MG/ML 20 ML IV ONE (09:21)
[2021-05-19] MEDS ORDERED: MIDAZOLAM HCL 2MG/2ML 2ml VIAL (1mg/ml) ONE (09:21)
[2021-05-19] MEDS ORDERED: ROCURONIUM 10MG/ML 10ML VIAL IV ONE (09:21)
[2021-05-19] MEDS ORDERED: GLYCOPYRROLATE 0.2 MG/ML 1ML VIAL ONE (11:37)
[2021-05-19] MEDS ORDERED: NEOSTIGMINE 1 MG/ML INJ (10mg/10ML VIAL) ONE (11:37)
[2021-05-19] MEDS ORDERED: ONDANSETRON HCL 4 MG/2 ML VIAL IV PRN ×2 (11:45→12:30)
[2021-05-19] MEDS ORDERED: ACETAMINOPHEN/CODEINE#3 (300/30mg) TAB PO PRN (11:45)
[2021-05-19] MEDS ORDERED: HYDROmorphone HCL 2 MG/ML VL IV PRN ×2 (11:45→12:30)
[2021-05-19] MEDS ORDERED: HYDROmorphone HCL 2 MG/ML VL ONE (12:07)
[2021-05-19] MEDS ORDERED: NITROGLYCERIN 0.4 MG SL TAB SL PRN (12:15)
[2021-05-19] MEDS ORDERED: MORPHINE SULFATE INJECTION 2 MG/ML SYRG IV PRN (12:15)
[2021-05-19] MEDS ORDERED: METOCLOPRAMIDE HCL 5MG/ml INJ 2ml VIAL IV PRN (12:30)
[2021-05-19] MEDS: HYDROmorphone HCL 2 MG/ML VL IV PRN ×3 (13:00→15:25)
[2021-05-19] MEDS ORDERED: DEXTROSE (50%) 50ML SYRG IV PRN (14:15)
[2021-05-19] MEDS: SODIUM CHLORIDE 0.9% 1,000 ML IV SCH (15:47)
[2021-05-19] MEDS: ACCU-CHEK COMFORT CURVE STRIP VI SCH (18:00)
[2021-05-19] MEDS: InsuLIN REG 1unit/0.01ml Soln (100units/ml) SC SCH (18:29)
[2021-05-19 18:56] VITALS: BP 125/65
[2021-05-19 20:00] VITALS: BP 130/81
[2021-05-19 22:07] VITALS: BP 130/81
[2021-05-20] MEDS: ACCU-CHEK COMFORT CURVE STRIP VI SCH ×3 (00:26→12:25)
[2021-05-20] MEDS: InsuLIN REG 1unit/0.01ml Soln (100units/ml) SC SCH ×3 (00:27→12:25)
[2021-05-20] MEDS: SODIUM CHLORIDE 0.9% 1,000 ML IV SCH ×2 (03:35→16:55)
[2021-05-20] MEDS: HYDROcodone-ACET 5/325MG TAB PO PRN ×3 (03:59→16:26)
[2021-05-20 05:07] VITALS: BP 127/85
[2021-05-20 06:21] LABS: Albumin 3.1 g/dL (3.4-5.0); Calcium 8.8 mg/dL (8.5-10.1); Potassium 3.6 mmol/L (3.5-5.1)
[2021-05-20 06:24] LABS: Basophils # (auto) 0 10 ^3/uL (0-0.2); Basophils % (auto) 0.3 % (0.0-2.0); Eosinophils # (auto) 0.1 10 ^3/uL (0-0.8); Eosinophils % (auto) 0.7 % (0.0-7.0); Hematocrit 33.6 % (41.0-53.0); Hemoglobin 11.8 g/dL (13.5-17.5); Lymphocytes # (auto) 2.4 10 ^3/uL (0.4-5.4); Lymphocytes % (auto) 22.9 % (10.0-50.0); Mean Corpuscular Hemoglobin 29.6 pg (28.0-32.0); Mean Corpuscular Hgb Conc. 35.2 g/dL (32.0-36.0); Monocytes # (auto) 0.9 10 ^3/uL (0-1.3); Monocytes % (auto) 8.5 % (0.0-12.0); Neutrophils # (auto) 7.1 10 ^3/uL (1.6-8.6); Neutrophils % (auto) 67.6 % (37.0-80.0); Red Cell Distribution Width 14.6 % (11.8-14.3); White Blood Cell 10.5 10^3/uL (4.4-10.8)
[2021-05-20 06:25] LABS: Bilirubin, Total 0.9 mg/dL (0.2-1.0); Total Protein 7.2 g/dL (6.4-8.2)
[2021-05-20 09:00] VITALS: BP 128/78
[2021-05-20] MEDS ORDERED: cefTRIAXone 1GM/50ML D5W 50 ML IV SCH (09:00)
[2021-05-20] MEDS ORDERED: PANTOPRAZOLE 40 MG/10 ML VIAL INJ IV SCH (10:00)
[2021-05-20 13:00] VITALS: BP 135/82
== END 2021-05-20 17:27 | disposition home or self-care (01) | DRG 419 ==
LOC: SUR 07:07 → CENTRAL 07:08
PROVIDERS: ADMIT Surgery; ATTEND Internal Medicine
PROC: 0FT44ZZ Resection of Gallbladder, Percutaneous Endoscopic Approach (ICD-10-PCS; principal; 2021-05-19 09:23)
DX: K80.10 Calculus of gallbladder with chronic cholecystitis without obstruction (principal); Z20.822 Contact with and (suspected) exposure to COVID-19; E66.01 Morbid (severe) obesity due to excess calories; E11.9 Type 2 diabetes mellitus without complications; Z87.01 Personal history of pneumonia (recurrent); Z86.16 Personal history of COVID-19; Z68.28 Body mass index [BMI] 28.0-28.9, adult
CPT/HCPCS: 36415; 80053; 81001; 82247; 82962; 83036; 85025; 86850; 86900; 86901; C9113; G0378; J0330; J0690; J0696; J1815; J2001; J2250; J2405; J2704

== ENCOUNTER → 2021-09-01 | Day surgery (SDC) | payer OTHER ==
[2021-08-30 11:00] LABS: Basophils # (auto) 0.1 10 ^3/uL (0-0.2); Basophils % (auto) 0.7 % (0.0-2.0); Eosinophils # (auto) 0.2 10 ^3/uL (0-0.8); Eosinophils % (auto) 2.5 % (0.0-7.0); Hematocrit 43.7 % (41.0-53.0); Hemoglobin 14.6 g/dL (13.5-17.5); Lymphocytes # (auto) 2.7 10 ^3/uL (0.4-5.4); Lymphocytes % (auto) 32.6 % (10.0-50.0); Mean Corpuscular Hemoglobin 27.4 pg (28.0-32.0); Mean Corpuscular Hgb Conc. 33.4 g/dL (32.0-36.0); Monocytes # (auto) 0.6 10 ^3/uL (0-1.3); Neutrophils # (auto) 4.7 10 ^3/uL (1.6-8.6); Neutrophils % (auto) 57.2 % (37.0-80.0); Red Blood Cells 5.33 10^6/uL (4.5-5.90); White Blood Cell 8.2 10^3/uL (4.4-10.8)
[2021-08-30 11:17] LABS: INR 0.98 (0.9-1.15); Partial Thromboplastin Time 26.5 sec (23.6-33.0)
[2021-08-30 11:36] LABS: Urine Bacteria NONE SEEN /hpf (None Seen); Urine Blood Negative /uL (Negative); Urine Specific Gravity 1.006 (1.001-1.035); Urine WBC <1 /hpf (0 - 3)
[2021-08-30 11:42] LABS: Calcium 9.4 mg/dL (8.5-10.1); Potassium 4.2 mmol/L (3.5-5.1)
[2021-08-30 11:46] LABS: BUN/Creatinine Ratio 21.1; Bilirubin, Total 0.5 mg/dL (0.2-1.0); Total Protein 7.8 g/dL (6.4-8.2)
[~2021-09-01] VITALS: Ht 170.2 cm; Wt 86.6 kg
[~2021-09-01] MED LIST changes: +BUPIVACAINE 0.25% INJ 50ML VIAL ONE; +DexAMETHasone SOD PHOS 10MG/1ML VIAL INJ ONE; +KETOROLAC TROMETH 30 MG/ML 1ML VIAL IV ONE; +LABETALOL HCL 5 MG/ML 4ML SYRINGE IV PRN; -LEVO-28 PO; +LIDOCAINE W/ EPINEPHRINE 1% 20ML VIAL ONE; +MEPERIDINE HCL (50 MG/ML) 1 ML VIAL ONE; -METR500T PO; +MIDAZOLAM HCL 2MG/2ML 2ml VIAL (1mg/ml) IV PRN; +MIDAZOLAM HCL 2MG/2ML 2ml VIAL (1mg/ml) ONE; +MORPHINE SULFATE 4 MG/ML SYR/VIAL IV PRN; +ONDANSETRON HCL 4 MG/2 ML VIAL IV PRN; +PROPOFOL 10 MG/ML 20 ML IV ONE; +SUCCINYLCHOLINE CHLORIDE 20 MG/ML 10ML VIAL IV ONE; -[UNRECOGNIZED DRUG - CODE] IV; +ceFAZolin 1GM/50ML 100 ML IV ONE; +ePHEDrine SULFATE 50 MG/ML AMP IV PRN; +fentaNYL CITRATE 100 MCG/2 ML VL ONE
[2021-09-01] MEDS: HYDROmorphone HCL 2 MG/ML VL IV PRN ×2 (09:40→10:10)
[2021-09-01 11:00] VITALS: BP 127/81
== END | disposition home or self-care (01) ==
LOC: SUR 06:05
PROVIDERS: ATTEND Surgery
DX: K43.9 Ventral hernia without obstruction or gangrene (principal); I10 Essential (primary) hypertension; Z20.822 Contact with and (suspected) exposure to COVID-19; Z98.890 Other specified postprocedural states; Z79.899 Other long term (current) drug therapy; Z83.3 Family history of diabetes mellitus; Z83.42 Family history of familial hypercholesterolemia
CPT/HCPCS: 36415; 49560; 80053; 81001; 85025; 85610; 85730; J0330; J0690; J1100; J1170; J1885; J2175; J2250; J2704; J3010; J3490; Q4140; U0003

== ENCOUNTER → 2022-01-31 | Outpatient (CLI) | payer OTHER ==
[~2022-01-31] MED LIST changes: -BUPIVACAINE 0.25% INJ 50ML VIAL ONE; -DexAMETHasone SOD PHOS 10MG/1ML VIAL INJ ONE; -KETOROLAC TROMETH 30 MG/ML 1ML VIAL IV ONE; -LABETALOL HCL 5 MG/ML 4ML SYRINGE IV PRN; -LIDOCAINE W/ EPINEPHRINE 1% 20ML VIAL ONE; -MEPERIDINE HCL (50 MG/ML) 1 ML VIAL ONE; -MIDAZOLAM HCL 2MG/2ML 2ml VIAL (1mg/ml) IV PRN; -MIDAZOLAM HCL 2MG/2ML 2ml VIAL (1mg/ml) ONE; -MORPHINE SULFATE 4 MG/ML SYR/VIAL IV PRN; -ONDANSETRON HCL 4 MG/2 ML VIAL IV PRN; -PROPOFOL 10 MG/ML 20 ML IV ONE; -SUCCINYLCHOLINE CHLORIDE 20 MG/ML 10ML VIAL IV ONE; -ceFAZolin 1GM/50ML 100 ML IV ONE; -ePHEDrine SULFATE 50 MG/ML AMP IV PRN; -fentaNYL CITRATE 100 MCG/2 ML VL ONE
[2022-01-31 11:06] LABS: Basophils # (auto) 0.1 10 ^3/uL (0-0.2); Basophils % (auto) 0.8 % (0.0-2.0); Eosinophils # (auto) 0.3 10 ^3/uL (0-0.8); Eosinophils % (auto) 2.8 % (0.0-7.0); Hematocrit 49.6 % (41.0-53.0); Hemoglobin 16.9 g/dL (13.5-17.5); Lymphocytes # (auto) 2.7 10 ^3/uL (0.4-5.4); Lymphocytes % (auto) 28.4 % (10.0-50.0); Mean Corpuscular Hemoglobin 28.3 pg (28.0-32.0); Mean Corpuscular Hgb Conc. 34.1 g/dL (32.0-36.0); Monocytes # (auto) 0.7 10 ^3/uL (0-1.3); Monocytes % (auto) 6.9 % (0.0-12.0); Neutrophils # (auto) 5.8 10 ^3/uL (1.6-8.6); Neutrophils % (auto) 61.1 % (37.0-80.0); Red Blood Cells 5.98 10^6/uL (4.5-5.90); Red Cell Distribution Width 14.2 % (11.8-14.3); White Blood Cell 9.6 10^3/uL (4.4-10.8)
[2022-01-31 12:21] LABS: Albumin 3.8 g/dL (3.4-5.0); Potassium 4.5 mmol/L (3.5-5.1)
[2022-01-31 12:30] LABS: BUN/Creatinine Ratio 19.5; Bilirubin, Total 0.8 mg/dL (0.2-1.0); Calcium 9.5 mg/dL (8.5-10.1)
== END | disposition home or self-care (01) ==
LOC: LAB 10:53
PROVIDERS: ATTEND Internal Medicine
DX: N52.9 Male erectile dysfunction, unspecified (principal); E78.5 Hyperlipidemia, unspecified; E11.9 Type 2 diabetes mellitus without complications
CPT/HCPCS: 36415; 80053; 80061; 83036; 84403; 85025

== ENCOUNTER → 2022-03-28 | Emergency (ER) | payer OTHER ==
[~2022-03-28] VITALS: Ht 170.2 cm; Wt 88.5 kg
[2022-03-28 17:13] VITALS: BP 129/90
== END | disposition home or self-care (01) ==
LOC: ER 16:32
DX: M54.12 Radiculopathy, cervical region (principal); M54.16 Radiculopathy, lumbar region; M51.36 Other intervertebral disc degeneration, lumbar region; E11.9 Type 2 diabetes mellitus without complications; Z90.49 Acquired absence of other specified parts of digestive tract; Z79.82 Long term (current) use of aspirin; Z79.4 Long term (current) use of insulin; Z79.899 Other long term (current) drug therapy
CPT/HCPCS: 70450; 72125; 72131

== ENCOUNTER → 2022-05-04 | Outpatient (CLI) | payer OTHER ==
[2022-05-04 12:48] LABS: Albumin 3.6 g/dL (3.4-5.0); Bilirubin, Direct 0.2 mg/dL (0-0.2)
[2022-05-04 12:52] LABS: Bilirubin, Total 0.6 mg/dL (0.2-1.0); Total Protein 7.2 g/dL (6.4-8.2)
== END | disposition home or self-care (01) ==
LOC: LAB 11:32
PROVIDERS: ATTEND Internal Medicine
DX: E11.65 Type 2 diabetes mellitus with hyperglycemia (principal)
CPT/HCPCS: 36415; 80076; 83036; 84153; 84403

== ENCOUNTER → 2022-11-29 | Outpatient (CLI) | payer OTHER | END | disposition home or self-care (01) | LOC: LAB 13:29 | PROVIDERS: ATTEND Urology | DX: E29.1 Testicular hypofunction (principal) | CPT/HCPCS: 36415; 84153; 84403 ==

== ENCOUNTER 2023-11-22 10:28 | Day surgery (SDC) | payer MEDICARE, MEDICAID ==
[2023-11-20 09:54] LABS: Basophils # (auto) 0.1 10 ^3/uL (0-0.2); Basophils % (auto) 0.7 % (0.0-2.0); Eosinophils # (auto) 0.3 10 ^3/uL (0-0.8); Eosinophils % (auto) 3.3 % (0.0-7.0); Lymphocytes # (auto) 2.8 10 ^3/uL (0.4-5.4); Lymphocytes % (auto) 27.1 % (10.0-50.0); Mean Corpuscular Hemoglobin 28.8 pg (28.0-32.0); Mean Corpuscular Hgb Conc. 33.3 g/dL (32.0-36.0); Mean Corpuscular Volume 86.7 fL (80.0-100.0); Monocytes # (auto) 0.9 10 ^3/uL (0-1.3); Neutrophils # (auto) 6.2 10 ^3/uL (1.6-8.6); Neutrophils % (auto) 59.9 % (37.0-80.0); Nucleated Red Blood Cells % 0.1 %; Red Blood Cells 5.19 10^6/uL (4.5-5.90); Red Cell Distribution Width 14.2 % (11.8-14.3); White Blood Cell 10.4 10^3/uL (4.4-10.8)
[2023-11-20 10:04] LABS: INR 0.96 (0.9-1.15); Partial Thromboplastin Time 27.2 SEC (24.5-34.5); Prothrombin Time 10.1 sec (9.3-11.8)
[2023-11-20 10:23] LABS: Alanine Aminotransferase 63 U/L (7-40); Albumin 4.8 g/dL (3.2-4.8); Alkaline Phosphatase 56 U/L (46-116); Anion Gap 7 (5-15); Aspartate Aminotransferase 48 U/L (13-40); Blood Urea Nitrogen 13 mg/dL (9-23); Calcium 9.8 mg/dL (8.5-10.1); Carbon Dioxide 28 mmol/L (20-30); Chloride 104 mmol/L (98-107); Glucose 250 mg/dL (74-106); Sodium 139 mmol/L (136-145)
[2023-11-20 10:24] LABS: Bilirubin, Total 0.6 mg/dL (0.2-1.0); Total Protein 7.6 g/dL (5.7-8.2)
[~2023-11-22] VITALS: Ht 170.2 cm; Wt 87.5 kg
[~2023-11-22 10:28] MED LIST changes: -ASPI1TAB20 PO; +GLIP5TAB12 PO; -INSREG3 SC; +MELA3TAB27 PO; -PANT40TA2 PO
[2023-11-22] MEDS ORDERED: SODIUM CHLORIDE LOCK 10 ML ONE (10:40)
[2023-11-22] MEDS: fentaNYL CITRATE 100 MCG/2 ML VL ONE (12:36)
[2023-11-22] MEDS: diphenhdrAMINE HCL 50 MG/1 ML VL ONE (12:36)
[2023-11-22] MEDS: MIDAZOLAM HCL 5 MG/ML-1ML VIAL ONE (12:36)
[2023-11-22 12:53] VITALS: O2SAT 98
[2023-11-22 13:31] VITALS: BP 131/87; PULSE 86; RESP 18; O2SAT 94
== END 2023-11-22 14:29 | disposition home or self-care (01) ==
LOC: GI 10:28
PROVIDERS: ATTEND Internal Medicine Gastroenterology
DX: Z12.11 Encounter for screening for malignant neoplasm of colon (principal); K62.1 Rectal polyp; K57.30 Diverticulosis of large intestine without perforation or abscess without bleeding; K64.8 Other hemorrhoids; I10 Essential (primary) hypertension; E11.9 Type 2 diabetes mellitus without complications; Z79.899 Other long term (current) drug therapy; Z98.890 Other specified postprocedural states
CPT/HCPCS: 36415; 45380; 80053; 85025; 85610; 85730; 88305; J1200; J2250; J3010; J7030; 99152

== ENCOUNTER → 2024-07-03 | Day surgery (SDC) | payer MEDICARE ==
[2024-07-01 10:48] LABS: Urine Bacteria None Seen /hpf (None Seen)
[2024-07-01 11:01] LABS: Basophils # (auto) 0.1 10 ^3/uL (0-0.2); Basophils % (auto) 0.7 % (0.0-2.0); Eosinophils # (auto) 0.2 10 ^3/uL (0-0.8); Eosinophils % (auto) 2.6 % (0.0-7.0); Lymphocytes # (auto) 2.4 10 ^3/uL (0.4-5.4); Lymphocytes % (auto) 32.3 % (10.0-50.0); Mean Corpuscular Hemoglobin 30.9 pg (28.0-32.0); Mean Corpuscular Hgb Conc. 34.9 g/dL (32.0-36.0); Mean Corpuscular Volume 88.3 fL (80.0-100.0); Monocytes # (auto) 0.6 10 ^3/uL (0-1.3); Neutrophils # (auto) 4.2 10 ^3/uL (1.6-8.6); Neutrophils % (auto) 56.4 % (37.0-80.0); Nucleated Red Blood Cells % 0.1 %; Platelet Count (auto) 222 10^3/uL (140-450); Red Blood Cells 4.87 10^6/uL (4.5-5.90); Red Cell Distribution Width 13.8 % (11.8-14.3); White Blood Cell 7.5 10^3/uL (4.4-10.8)
[2024-07-01 11:19] LABS: INR 0.99 (0.9-1.15); Prothrombin Time 10.5 sec (9.3-11.8)
[2024-07-01 11:20] LABS: Urine Blood Negative /uL (Negative); Urine Clarity Clear (Clear); Urine Color Light-Yellow (Yellow); Urine Protein, UAD TRACE (Negative); Urine Specific Gravity 1.043 (1.001-1.035); Urine Urobilinogen Normal (Negative); Urine WBC 3 /hpf (0 - 3); Urine pH 5.5 (5.0-9.0)
[2024-07-01 12:05] LABS: Alanine Aminotransferase 53 U/L (7-40); Albumin 4.5 g/dL (3.2-4.8); Alkaline Phosphatase 50 U/L (46-116); Anion Gap 10 (5-15); Aspartate Aminotransferase 51 U/L (13-40); BUN/Creatinine Ratio 16.5 (10.0-20.0); Blood Urea Nitrogen 14 mg/dL (9-23); Calcium 9.7 mg/dL (8.7-10.4); Carbon Dioxide 24 mmol/L (20-31); Chloride 101 mmol/L (98-107); Glucose 306 mg/dL (74-106); Sodium 135 mmol/L (136-145)
[2024-07-01 12:06] LABS: Bilirubin, Total 0.9 mg/dL (0.2-1.0); Total Protein 7.5 g/dL (5.7-8.2)
[~2024-07-03] VITALS: Ht 170.2 cm; Wt 84.8 kg
[~2024-07-03] MED LIST changes: +ALBU0.084 IN; +BUPIVACAINE 0.25% INJ 50ML VIAL ONE; -GLIP5TAB12 PO; +LIDOCAINE W/ EPINEPHRINE 1% 20ML VIAL ONE; -MELA3TAB27 PO; +ceFAZolin 2 GM/D5W100ml 100 ML IV ONE
== END | disposition home or self-care (01) ==
LOC: SUR 06:25
PROVIDERS: ATTEND Surgery
DX: K43.9 Ventral hernia without obstruction or gangrene (principal); Z53.8 Procedure and treatment not carried out for other reasons; E11.9 Type 2 diabetes mellitus without complications; Z98.890 Other specified postprocedural states; Z83.3 Family history of diabetes mellitus
CPT/HCPCS: 36415; 80053; 81001; 82962; 85025; 85610; 85730; J3490

== ENCOUNTER → 2024-10-03 | Outpatient (CLI) | payer MEDICARE ==
[~2024-10-03] MED LIST changes: -BUPIVACAINE 0.25% INJ 50ML VIAL ONE; -LIDOCAINE W/ EPINEPHRINE 1% 20ML VIAL ONE; -ceFAZolin 2 GM/D5W100ml 100 ML IV ONE
== END | disposition home or self-care (01) ==
LOC: LAB 13:42
PROVIDERS: ATTEND Internal Medicine
DX: M79.2 Neuralgia and neuritis, unspecified (principal); R51.9 Headache, unspecified
CPT/HCPCS: 36415; 82565; 84520